=== PATIENT | female | born 1960 | race American Indian/Alaskan Native ===

== ENCOUNTER 2016-05-24 19:55 | Emergency (ER) | payer BC ==
[2016-05-24 20:57] LABS: Basophils % (Auto) 0.5 % (0.0-1.8); Hematocrit 39.9 % (30.3-42.9); Hemoglobin 12.9 gm/dl (10.1-14.3); Mean Corpuscular HGB Conc 32 % (30-34); Mean Corpuscular Hemoglobin 28 pg (28-32); Mean Corpuscular Volume 87 fl (79-97); Platelet Count 182 K/mm3 (140-440); Red Blood Count 4.61 M/mm3 (3.65-5.03); Red Cell Distribution Width 14.9 % (13.2-15.2); White Blood Count 3.4 K/mm3 (4.5-11.0)
[2016-05-24 21:45] LABS: Anion Gap 19 mmol/L; Blood Urea Nitrogen 6 mg/dL (7-17); Calcium 8.6 mg/dL (8.4-10.2); Carbon Dioxide 26 mmol/L (22-30); Glucose 230 mg/dL (65-100); Potassium 3.9 mmol/L (3.6-5.0); Sodium 140 mmol/L (137-145)
[2016-05-24 21:47] LABS: Alanine Aminotransferase 21 units/L (7-56); Albumin 3.8 g/dL (3.9-5); Alkaline Phosphatase 82 units/L (35-129); Anion Gap 20 mmol/L; Bilirubin,Total 0.2 mg/dL (0.1-1.2); Blood Urea Nitrogen 6 mg/dL (7-17); Calcium 8.7 mg/dL (8.4-10.2); Carbon Dioxide 25 mmol/L (22-30); Chloride 97.4 mmol/L (98-107); Glucose 232 mg/dL (65-100); Sodium 138 mmol/L (137-145); Total Protein 7.6 g/dL (6.3-8.2)
[2016-05-24 22:10] LABS: Bacteria,Urine 1+ /HPF (Negative); Bilirubin,Urine NEG (Negative); Blood,Urine MOD (Negative); Ketones,Urine TR mg/dL (Negative); Leukocyte Esterase,Urine SM (Negative); Mucus,Urine 1+ /HPF; Nitrite,Urine NEG (Negative); Urobilinogen,Urine < 2.0 mg/dL (<2.0)
[2016-05-24] MEDS ORDERED: DUONEB 0.5 MG-3 MG/3 ML SOLN IH ONE (22:41)
[2016-05-24] MEDS ORDERED: MACROBID PO ONE (22:41)
[2016-05-24] MEDS ORDERED: ZOFRAN ODT PO ONE (22:59)
--- NOTE | 2016-05-24 22:59 | Emergency Department Report ---
HPI - General Chief Complaint: Weakness Time Seen by Provider: 05/24/16 22:31 - HPI HPI: This is a 55-year-old Afro-I[place] female presents the emergency department with complaint of some nausea with vomiting and some wheezing as well as some generalized weakness. The patient says that she had a 5 week history of cold like symptoms before she was diagnosed at [facility] last with pneumonia. She finished a course of antibiotics with still has been having some of the symptoms described above. She was told by her family to go to the hospital for a "second opinion." She has a history of insulin-dependent diabetes and hypertension. She denies any chest pain, back pain, vision change , slurred speech. She is not taken anything else for symptoms prior to presentation. No recent travel or sick contacts at home. ED Past Medical Hx - Past Medical History Previous Medical History?: Yes Hx Hypertension: Yes Hx Heart Attack/AMI: No Hx Congestive Heart Failure: No Hx Diabetes: Yes Hx Deep Vein Thrombosis: No Hx Pulmonary Embolism: No Hx Liver Disease: No Hx Asthma: No Hx COPD: No Hx Tuberculosis: No Additional medical history: enlarged heart - Surgical History Hx Coronary Stent: No Hx Pacemaker: No Hx Internal Defibrillator: No - Social History Smoking Status: Never Smoker Substance Use Type: None - Medications Home Medications: Home Medications Medication Instructions Recorded Confirmed Last Taken Type Celecoxib [celeBREX] 200 mg PO QDAY 11/30/12 11/30/12 Unknown History Insulin Glargine,Hum.rec.anlog 20 unit SQ 11/30/12 11/30/12 Unknown History [Lantus Solostar] Lisinopril [Zestril] 40 mg PO QDAY 11/30/12 11/30/12 Unknown History Oxybutynin [Ditropan] 5 mg PO BID 11/30/12 11/30/12 Unknown History Pregabalin [Lyrica] 75 mg PO BID 11/30/12 11/30/12 Unknown History amLODIPine [Norvasc] 10 mg PO DAILY 11/30/12 11/30/12 Unknown History metFORMIN [Glucophage] 500 mg PO BID 11/30/12 11/30/12 Unknown History Ciprofloxacin HCl [Ciprofloxacin 500 mg PO Q12H #20 tab 04/02/14 Unknown Rx TAB] Nitrofurantoin Adams/M-Cryst 100 mg PO Q12HR #14 capsule 05/25/16 Unknown Rx [Macrobid CAP] ED Review of Systems ROS: Stated complaint: NAUSEA/HEADACHE/WEAKNESS Other details as noted in HPI Comment: All other systems reviewed and negative Constitutional: weakness. denies: chills, fever Eyes: denies: eye pain, eye discharge, vision change ENT: denies: ear pain, throat pain Respiratory: cough, wheezing. denies: shortness of breath Cardiovascular: denies: chest pain, edema Gastrointestinal: nausea, vomiting Genitourinary: denies: urgency, dysuria, discharge Musculoskeletal: denies: back pain, joint swelling, arthralgia Skin: denies: rash, lesions Neurological: denies: numbness, paresthesias Physical Exam - Physical Exam Vital Signs: Vital Signs 05/24/16 20:17 Temperature 98.1 F Pulse Rate 86 Blood Pressure 145/70 O2 Sat by Pulse 100 Oximetry Physical Exam: GENERAL: The patient is well-developed well-nourished. HEENT: Normocephalic. Atraumatic. Extraocular motions are intact. Patient has moist mucous membranes. Pupils equal reactive to light bilaterally. NECK: Supple. Trachea is midline. CHEST/LUNGS: Mild expiratory wheezing throughout the chest. No cough heard during examination. No tachypnea or accessory muscle use. There is no respiratory distress noted. HEART/CARDIOVASCULAR: Regular. There is no tachycardia. There is no gallop rub or murmur. ABDOMEN: Abdomen is soft, nontender. Patient has normal bowel sounds. There is no abdominal distention. Obese habitus. SKIN: Warm and dry. NEURO: The patient is awake, alert, and oriented. The patient is cooperative. The patient has no focal neurologic deficits. The patient has normal speech. Cranial nerves II through XII grossly intact. MUSCULOSKELETAL: There is no tenderness or deformity. There is no limitation range of motion. There is no evidence of acute injury. ED Course Vital Signs 05/24/16 20:17 Temperature 98.1 F Pulse Rate 86 Blood Pressure 145/70 O2 Sat by Pulse 100 Oximetry ED Medical Decision Making - Lab Data Result diagrams: 05/24/16 20:43 05/24/16 20:43 - EKG Data -: EKG Interpreted by Me EKG shows normal: sinus rhythm, axis, intervals (slight prolongation to the QTC) , QRS complexes, ST-T waves Rate: normal - EKG Data When compared to previous EKG there are: previous EKG unavailable Interpretation: other (sinus rhythm, no ST elevation [place], slight prolongation to the QTC) - Radiology Data Radiology results: image reviewed interpreted by me: Chest x-ray did not show any acute process. Heart is normal shape and size. No effusions. No pneumothorax. No signs of pneumonia seen. - Medical Decision Making 55-year-old female presents to the emergency department with the complaint of some generalized weakness, continued cough and chest congestion, after previous being treated for pneumonia. The patient wanted a second opinion. Patient's labs are mostly unremarkable. There is no leukocytosis, electrolyte abnormalities, renal insufficiency, glucose abnormalities and the patient had a negative troponin. EKG does not show any signs of ST elevation [place], dysrhythmia or ischemia. Patient was given a breathing treatment and upon reevaluation the slight expiratory wheezing she had has resolved and the patient says she is feeling better. The patient's urinalysis does show a very mild UTI with 20 WBCs. She'll be treated with Macrobid. She'll be encouraged to follow-up with her primary care doctor and return to the ER with any worsening of her symptoms or any acute distress. She understands and agrees to plan. - Differential Diagnosis pneumonia, bronchitis, asthma, viral syndrome Critical Care Time: No Critical care attestation.: If time is entered above; I have spent that time in minutes in the direct care of this critically ill patient, excluding procedure time. ED Disposition Clinical Impression: Bronchospasm, Weakness UTI (urinary tract infection) Qualifiers: Urinary tract infection type: acute cystitis Hematuria presence: without hematuria Qualified Code(s): N30.00 - Acute cystitis without hematuria Disposition: DISCHARGED TO HOME OR SELFCARE Is pt being admited?: No Condition: Stable Instructions: Weakness (ED), Bronchospasm (ED), Urinary Tract Infection in Women (ED) Additional Instructions: Please follow-up with your primary care doctor in the next few days. Use your albuterol inhaler as you need for any wheezing or shortness of breath. Take the antibiotics as prescribed for the urinary tract infection. Return to the emergency department with any worsening of your symptoms or any acute distress. Prescriptions: Nitrofurantoin Adams/M-Cryst [Macrobid CAP] 100 mg PO Q12HR #14 capsule Referrals: PRIMARY CARE, [Referring] - 3-5 Days Time of Disposition: 00:31
[2016-05-25 01:20] VITALS: BP 152/88
--- NOTE | 2016-05-25 09:21 | XRay Report ---
CHEST 2 VIEWS INDICATION: Cough. COMPARISON: November 2012. FINDINGS: PA and lateral chest radiographs again demonstrate borderline cardiomegaly. No pleural effusions or CHF. Extrinsic clothing artifacts. Multilevel thoracic spondylosis with predominantly right lateral and anterior osteophytes. CONCLUSION: No acute chest process, stable. Thank you for the opportunity to participate in this patient's care.
== END 2016-05-25 01:20 | disposition home or self-care (01) ==
LOC: ED 19:55
DX: N30.00 Acute cystitis without hematuria (principal); J98.01 Acute bronchospasm; R53.1 Weakness; I10 Essential (primary) hypertension; E11.9 Type 2 diabetes mellitus without complications; Z79.4 Long term (current) use of insulin
CPT/HCPCS: 36415; 71020; 80048; 80053; 81001; 84484; 85025; 93005; 93010; 94640; Q0162

== ENCOUNTER 2018-09-17 19:03 | Observation (INO) | payer BC ==
[2018-09-17 21:06] LABS: Basophils # (Auto) 0.1 K/mm3 (0.0-0.1); Basophils % (Auto) 0.4 % (0.0-1.8); Eosinophils # (Auto) 0.5 K/mm3 (0.0-0.4); Eosinophils % (Auto) 4.4 % (0.0-4.3); Hematocrit 39.5 % (30.3-42.9); Hemoglobin 13.4 gm/dl (10.1-14.3); Lymphocytes # (Auto) 1.3 K/mm3 (1.2-5.4); Lymphocytes % (Auto) 11.4 % (13.4-35.0); Mean Corpuscular HGB Conc 34 % (30-34); Mean Corpuscular Volume 85 fl (79-97); Monocytes # (Auto) 0.5 K/mm3 (0.0-0.8); Monocytes % (Auto) 4.6 % (0.0-7.3); Platelet Count 161 K/mm3 (140-440); Red Blood Count 4.63 M/mm3 (3.65-5.03); Red Cell Distribution Width 15.6 % (13.2-15.2)
[2018-09-17 21:22] LABS: Albumin 3.2 g/dL (3.9-5); BUN/Creatinine Ratio 17; Blood Urea Nitrogen 15 mg/dL (7-17); Calcium 9.1 mg/dL (8.4-10.2); Hemolysis Index 14
[2018-09-17 21:39] LABS: Alanine Aminotransferase < 5 units/L (7-56)
[2018-09-17 22:03] LABS: Bacteria,Urine 2+ /HPF (Negative); Bilirubin,Urine NEG (Negative); Blood,Urine MOD (Negative); Color,Urine Yellow (Yellow); Mucus,Urine FEW /HPF; Urobilinogen,Urine < 2.0 mg/dL (<2.0)
[2018-09-17] MEDS ORDERED: NACL 0.9% 1000 ML 1,000 ML IV ONE (22:28)
[2018-09-17] MEDS ORDERED: LEVAQUIN PO ONE (22:34)
--- NOTE | 2018-09-17 22:37 | Emergency Department Report ---
HPI - General Chief Complaint: Syncope Time Seen by Provider: 09/17/18 22:15 - HPI HPI: Room 22 The patient is a 58-year-old female presenting with a chief complaint of syncope. The patient says she had 2 syncopal episodes yesterday and a near-syncopal episode today. Patient states yesterday morning at approximately 09:00 upon standing up everything went black and she awakened on the floor. The patient was helped to a bed and had another syncopal episode upon arriving to her bed. EMS was called and she was evaluated however she was not transported to the ED. The patient states this morning she had a near syncopal episode but was able to sit down before losing consciousness. Patient states she's had intermittent dizziness all day. Patient denied any preceding palpitations, headache, shortness of breath or chest pain. Patient denies bright red blood per rectum or melena. Patient denies diarrhea. The patient states she's had a decreased appetite for the past 2 days. Patient admits to nausea but denies vomiting. When asked how she is feeling currently the patient states she feels "okay." Location: [See above] Duration: [See above] Quality: [See above] Severity: [See above] Modifying factors: [see above] Context: [see above] Mode of transportation: [not driving] ED Past Medical Hx - Past Medical History Previous Medical History?: Yes Hx Hypertension: Yes Hx Diabetes: Yes Additional medical history: enlarged heart, high cholesterol, neuropathy - Surgical History Past Surgical History?: Yes Additional Surgical History: Rectal - Family History Family history: no significant - Social History Smoking Status: Never Smoker Substance Use Type: None (denies illicit drug use), Alcohol (occasional) - Medications Home Medications: Home Medications Medication Instructions Recorded Confirmed Last Taken Type Celecoxib [celeBREX] 200 mg PO QDAY 11/30/12 11/30/12 Unknown History Insulin Glargine,Hum.rec.anlog 20 unit SQ 11/30/12 11/30/12 Unknown History [Lantus Solostar] Lisinopril [Zestril] 40 mg PO QDAY 11/30/12 11/30/12 Unknown History Oxybutynin [Ditropan] 5 mg PO BID 11/30/12 11/30/12 Unknown History Pregabalin [Lyrica] 75 mg PO BID 11/30/12 11/30/12 Unknown History amLODIPine [Norvasc] 10 mg PO DAILY 11/30/12 11/30/12 Unknown History metFORMIN [Glucophage] 500 mg PO BID 11/30/12 11/30/12 Unknown History Ciprofloxacin HCl [Ciprofloxacin 500 mg PO Q12H #20 tab 04/02/14 Unknown Rx TAB] Nitrofurantoin [place]/M-Cryst 100 mg PO Q12HR #14 capsule 05/25/16 Unknown Rx [Macrobid CAP] ED Review of Systems ROS: Stated complaint: DIZZINESS/FAINTING/BACK PAIN Other details as noted in HPI Constitutional: no symptoms reported Eyes: denies: eye pain ENT: denies: throat pain Respiratory: shortness of breath Cardiovascular: denies: chest pain, palpitations Endocrine: no symptoms reported Gastrointestinal: nausea. denies: vomiting Genitourinary: denies: dysuria Musculoskeletal: denies: back pain Neurological: other (syncope). denies: headache Physical Exam - Physical Exam Vital Signs: Vital Signs 09/17/18 09/17/18 19:15 20:07 Temperature 100.4 F H 98.7 F Pulse Rate 77 Respiratory 18 Rate Blood Pressure 132/57 O2 Sat by Pulse 94 Oximetry Physical Exam: GENERAL: The patient is well-developed well-nourished female lying on stretcher not appearing to be in acute distress. [] HEENT: Normocephalic. Atraumatic. Extraocular motions are intact. Patient has moist mucous membranes. Right TM clear NECK: Supple. Trachea midline CHEST/LUNGS: Clear to auscultation. There is no respiratory distress noted. HEART/CARDIOVASCULAR: Regular. There is no tachycardia. There is no gallop rub or murmur. ABDOMEN: Abdomen is soft, nontender. Patient has normal bowel sounds. There is no abdominal distention. SKIN: There is no rash. There is no edema. There is no diaphoresis. NEURO: The patient is awake, alert, and oriented. The patient is cooperative. The patient has no focal neurologic deficits. The patient has normal speech. Cranial nerves II through XII grossly intact, no drift MUSCULOSKELETAL: There is no evidence of acute injury. ED Course Vital Signs 09/17/18 09/17/18 19:15 20:07 Temperature 100.4 F H 98.7 F Pulse Rate 77 Respiratory 18 Rate Blood Pressure 132/57 O2 Sat by Pulse 94 Oximetry ED Medical Decision Making - Lab Data Result diagrams: 09/17/18 20:34 09/17/18 20:34 - EKG Data -: EKG Interpreted by Me EKG shows normal: sinus rhythm Rate: normal - EKG Data When compared to previous EKG there are: changes noted Interpretation: nonspecific ST-T wave ana (new T-wave inversions noted in leads 1 aVL and V6 when compared to previous EKG dated 05/25/2016) - Radiology Data Radiology results: report reviewed (CT head, CT chest), image reviewed (CT head, CT chest) [address] [address] Cat Scan Report Signed Patient: PENNY GARCIA MR#: [id number] 45 : 1960 Acct:[id number] Age/Sex: 58 / F ADM Date: 09/17/18 Loc: ED Attending Dr: Ordering Physician: DAHLIA JIMENEZ MD Date of Service: 09/17/18 Procedure(s): CT head/brain wo con Accession Number(s): [id number] cc: DAHLIA JIMENEZ MD CT head without contrast INDICATION : syncope. Dizziness, multiple syncopal episodes over the past 2 days TECHNIQUE: Axial imaging performed from the skull apex through the skull base without the use of contrast. All CT scans at this location are performed using CT dose reduction for ALARA by means of automated exposure control. COMPARISON: None FINDINGS: Parenchyma: No acute intracranial hemorrhage or parenchymal abnormality. Ventricles: Ventricles are normal in size and appear symmetric. Soft tissues: Soft tissues including the orbits appear normal. Bones: No acute osseous abnormality. Sinuses: Sinuses and mastoid air cells are clear. IMPRESSION: No acute abnormality. Signer Name: Alin Cuevas MD Signed: 09/17/2018 11:05 PM Workstation Name: [id number] Transcribed By: MARIA ISABEL Dictated By: Alin Cuevas MD Electronically Authenticated By: Alin Cuevas MD Signed Date/Time: 09/17/182304 DD/ 03 TD/TT: [address] [address] Cat Scan Report Signed Patient: PENNY GARCIA MR#: [id number] 46 : 1960 Acct:[id number] Age/Sex: 58 / F ADM Date: 09/17/18 Loc: ED Attending Dr: Ordering Physician: DAHLIA JIMENEZ MD Date of Service: 09/18/18 Procedure(s): CT angio chest Accession Number(s): [id number] cc: DAHLIA JIMENEZ MD CTA CHEST WITH IV CONTRAST INDICATION: syncope, elevated d-dimer. TECHNIQUE: Axial CT images were obtained through the chest after injection of IV contrast. 3 plane MIP reconstructions were produced. All CT scans at this location are performed using CT dose reduction for ALARA by means of automated exposure control. COMPARISON: CT 12/02/2012. FINDINGS: Pulmonary Arteries: No pulmonary emboli. Thoracic Aorta: No acute abnormality. Heart: Normal. Coronary Arteries: No significant calcification. Lungs: No acute air space or interstitial disease. Pleura: No pleural effusion. No pneumothorax. Lymph Nodes: No significant adenopathy. Additional Findings: Bilateral carotid arteries take a very medial course. Upper Abdomen: No acute findings. Skeletal Structures: No significant osseous abnormality. IMPRESSION: 1. No CT evidence for pulmonary embolism. 2. No acute findings. Signer Name: Rory Serna MD Signed: 09/18/2018 1:16 AM Workstation Name: [id number] Transcribed By: ELOINA Dictated By: Rory Serna MD Electronically Authenticated By: Rory Serna MD Signed Date/Time: 09/18/18115 DD/ 3 TD/TT: - Differential Diagnosis syncope, dehydration, symptomatic anemia, PE, ACS Critical care attestation.: If time is entered above; I have spent that time in minutes in the direct care of this critically ill patient, excluding procedure time. ED Disposition Clinical Impression: Syncope Disposition: DC-09 OP ADMIT IP TO THIS HOSP Is pt being admited?: Yes Does the pt Need Aspirin: Yes Condition: Fair Instructions: Syncope (ED) Referrals: JP EARLY MD [Primary Care Provider] - 3-5 Days Time of Disposition: 01:31 (hospitalist notified (Dr. Ambar Hope))
--- NOTE | 2018-09-17 23:10 | Cat Scan Report ---
CT head without contrast INDICATION : syncope. Dizziness, multiple syncopal episodes over the past 2 days TECHNIQUE: Axial imaging performed from the skull apex through the skull base without the use of con trast. All CT scans at this location are performed using CT dose reduction for ALARA by means of aut omated exposure control. COMPARISON: None FINDINGS: Parenchyma: No acute intracranial hemorrhage or parenchymal abnormality. Ventricles: Ventricles are normal in size and appear symmetric. Soft tissues: Soft tissues including the orbits appear normal. Bones: No acute osseous abnormality. Sinuses: Sinuses and mastoid air cells are clear. IMPRESSION: No acute abnormality. Signer Name: Alin Cuevas MD Signed: 09/17/2018 11:05 PM Workstation Name: [id number]
--- NOTE | 2018-09-18 01:21 | Cat Scan Report ---
CTA CHEST WITH IV CONTRAST INDICATION: syncope, elevated d-dimer. TECHNIQUE: Axial CT images were obtained through the chest after injection of IV contrast. 3 plane MIP reconstru ctions were produced. All CT scans at this location are performed using CT dose reduction for ALARA b y means of automated exposure control. COMPARISON: CT 12/02/2012. FINDINGS: Pulmonary Arteries: No pulmonary emboli. Thoracic Aorta: No acute abnormality. Heart: Normal. Coronary Arteries: No significant calcification. Lungs: No acute air space or interstitial disease. Pleura: No pleural effusion. No pneumothorax. Lymph Nodes: No significant adenopathy. Additional Findings: Bilateral carotid arteries take a very medial course. Upper Abdomen: No acute findings. Skeletal Structures: No significant osseous abnormality. IMPRESSION: 1. No CT evidence for pulmonary embolism. 2. No acute findings. Signer Name: Rory Serna MD Signed: 09/18/2018 1:16 AM Workstation Name: [id number]
[2018-09-18] MEDS ORDERED: SODIUM CHLORIDE FLUSH SYRINGE 10 ML IV PRN (01:31)
[2018-09-18] MEDS ORDERED: TYLENOL PO PRN (01:31)
[2018-09-18] MEDS ORDERED: D50W (25GM) Syringe IV PRN (01:31)
[2018-09-18] MEDS ORDERED: ASPIRIN PO ONE (01:31)
[2018-09-18] MEDS ORDERED: ZOFRAN IV PRN (01:31)
[2018-09-18] MEDS ORDERED: SODIUM CHLORIDE FLUSH SYRINGE 10 ML INJ PRN (01:34)
--- NOTE | 2018-09-18 01:40 | History and Physical Report ---
<JAMIE APODACA - Last Filed: 09/18/18 03:31> History of Present Illness Date of examination: 09/18/18 Date of admission: 09/18/2018 Chief complaint: Syncopal episode History of present illness: 58-year-old -Iraqi female with history of hypertension, diabetes with neuropathy, HLD who presents to [facility] ED with complaints of syncopal episodes x2. Patient states that she had 2 syncopal episodes on Wednesday. Prior to having the syncopal episode patient states that she had prodromal period and include dizziness and nausea. She states that she recalls "blacking out". During regaining consciousness patient called EMS. EMS checked her blood sugar and blood pressure and she decided not to come to the ED for further evaluation. However on Wednesday morning and patient felt she was not at her baseline state of health. She described it as feeling "weird", she decided to come into the ED for evaluation. States that she experienced syncopal episodes 2 years ago and it was due to changes in her blood pressure medication. Denies: Emesis, hemoptysis, headache, gait dysfunction, noncompliance with antihypertensive and antidiabetic medication Past History Past Medical History: diabetes (neuropathy), hypertension, hyperlipidemia, other (enlarged heart) Past Surgical History: Other (rectal surgery) Social history: no significant social history Family history: no significant family history Medications and Allergies Allergies Allergy/AdvReac Type Severity Reaction Status Date / Time No Known Allergies Allergy Verified 12/01/12 08:54 Home Medications Medication Instructions Recorded Confirmed Last Taken Type Insulin Glargine,Hum.rec.anlog 40 unit SQ QHS 11/30/12 09/18/18 Unknown History [Lantus Solostar] Oxybutynin [Ditropan] 5 mg PO BID 11/30/12 09/18/18 Unknown History Pregabalin [Lyrica] 75 mg PO BID 11/30/12 09/18/18 Unknown History metFORMIN [Glucophage] 1,000 mg PO BID 11/30/12 09/18/18 Unknown History Aspirin [Aspirin BABY CHEW TAB] 81 mg PO QDAY 09/18/18 09/18/18 Unknown History Cyanocobalamin [Vitamin B-12] 1,000 mcg PO DAILY 09/18/18 09/18/18 Unknown History Duloxetine HCl [Cymbalta] 60 mg PO QDAY 09/18/18 09/18/18 Unknown History Ferrous Sulfate [Feosol 325 MG tab] 325 mg PO QDAY 09/18/18 09/18/18 Unknown History Rosuvastatin Calcium 40 mg PO QDAY 09/18/18 09/18/18 Unknown History Carvedilol [Coreg] 6.25 mg PO Q12HR #60 tablet 09/21/18 Unknown Rx Valsartan [Diovan] 320 mg PO QDAY #60 tablet 09/21/18 Unknown Rx amLODIPine [Norvasc] 10 mg PO QDAY #30 tablet 09/21/18 Unknown Rx Review of Systems All systems: negative (reviewed and no additional remarkable complaints except as noted below) Constitutional: poor appetite Cardiovascular: lightheadedness Respiratory: cough (related to seasonal allergies) Gastrointestinal: nausea Neurological: syncope, other (this is) Exam - Physical Exam Narrative exam: Physical exam General appearance: Present: No acute distress, well-developed, well-nourished, alert and oriented 3, -Iraqi female - EENT Eyes: Present: PERRL, EOM intact ENT: hearing intact, normal dentition - Neck Neck: Present: supple, normal ROM - Respiratory Respiratory effort: Non-labored Respiratory: Clear throughout - Cardiovascular Heart rate: 72 (bpm) Rhythm: Sinus rhythm Heart Sounds: Present: S1 & S2. Absent: rub, click - Extremities Extremities: no ischemia, pulses intact, - Peripheral Assessment Peripheral Pulses: within normal limits - Abdominal General gastrointestinal: soft, non-tender, normal bowel sounds - Integumentary Integumentary: Present: warm, dry - Musculoskeletal Musculoskeletal: Able to move all extremities -Neurological Neurological: CN II-XII intact - Psychiatric Psychiatric: Appropriate for situation, cooperative - Constitutional Vitals: Temp Pulse Resp BP Pulse Ox 98.7 F 64 16 119/65 87 09/17/18 20:07 09/17/18 23:35 09/17/18 23:35 09/17/18 23:35 09/17/18 23:35 Results - Labs CBC & Chem 7: 09/17/18 20:34 09/17/18 20:34 Labs: Laboratory Last Values WBC 11.3 K/mm3 (4.5-11.0) H 09/17/18 20:34 RBC 4.63 M/mm3 (3.65-5.03) 09/17/18 20:34 Hgb 13.4 gm/dl (10.1-14.3) 09/17/18 20:34 Hct 39.5 % (30.3-42.9) 09/17/18 20:34 MCV 85 fl (79-97) 09/17/18 20:34 MCH 29 pg (28-32) 09/17/18 20:34 MCHC 34 % (30-34) 09/17/18 20:34 RDW 15.6 % (13.2-15.2) H 09/17/18 20:34 Plt Count 161 K/mm3 (140-440) 09/17/18 20:34 Lymph % (Auto) 11.4 % (13.4-35.0) L 09/17/18 20:34 [place] % (Auto) 4.6 % (0.0-7.3) 09/17/18 20:34 Eos % (Auto) 4.4 % (0.0-4.3) H 09/17/18 20:34 Baso % (Auto) 0.4 % (0.0-1.8) 09/17/18 20:34 Lymph # 1.3 K/mm3 (1.2-5.4) 09/17/18 20:34 [place] # 0.5 K/mm3 (0.0-0.8) 09/17/18 20:34 Eos # 0.5 K/mm3 (0.0-0.4) H 09/17/18 20:34 Baso # 0.1 K/mm3 (0.0-0.1) 09/17/18 20:34 Seg Neutrophils % 79.2 % (40.0-70.0) H 09/17/18 20:34 Seg Neutrophils # 8.9 K/mm3 (1.8-7.7) H 09/17/18 20:34 328.23 ng/mlDDU (0-234) H 09/17/18 23:18 Sodium 132 mmol/L (137-145) L 09/17/18 20:34 Potassium 3.8 mmol/L (3.6-5.0) 09/17/18 20:34 Chloride 94.9 mmol/L (98-107) L 09/17/18 20:34 Carbon Dioxide 25 mmol/L (22-30) 09/17/18 20:34 16 mmol/L 09/17/18 20:34 BUN 15 mg/dL (7-17) 09/17/18 20:34 0.9 mg/dL (0.7-1.2) 09/17/18 20:34 Estimated GFR > 60 ml/min 09/17/18 20:34 17 % 09/17/18 20:34 Glucose 241 mg/dL (65-100) H 09/17/18 20:34 Calcium 9.1 mg/dL (8.4-10.2) 09/17/18 20:34 0.60 mg/dL (0.1-1.2) 09/17/18 20:34 AST 9 units/L (5-40) 09/17/18 20:34 ALT < 5 units/L (7-56) L 09/17/18 20:34 89 units/L (35-129) 09/17/18 20:34 < 0.010 ng/mL (0.00-0.029) 09/17/18 20:34 7.2 g/dL (6.3-8.2) 09/17/18 20:34 3.2 g/dL (3.9-5) L 09/17/18 20:34 0.8 % 09/17/18 20:34 Yellow (Yellow) 09/17/18 21:20 Cloudy (Clear) 09/17/18 21:20 5.0 (5.0-7.0) 09/17/18 21:20 Ur Specific [place] 1.023 (1.003-1.030) 09/17/18 21:20 30 mg/dl mg/dL (Negative) 09/17/18 21:20 Neg mg/dL (Negative) 09/17/18 21:20 Neg mg/dL (Negative) 09/17/18 21:20 Mod (Negative) 09/17/18 21:20 Neg (Negative) 09/17/18 21:20 Neg (Negative) 09/17/18 21:20 < 2.0 mg/dL (<2.0) 09/17/18 21:20 Ur Leukocyte Esterase Mod (Negative) 09/17/18 21:20 29.0 /HPF (0.0-6.0) H 09/17/18 21:20 22.0 /HPF (0.0-6.0) 09/17/18 21:20 U Epithel Cells (Auto) 34.0 /HPF (0-13.0) H 09/17/18 21:20 2+ /HPF (Negative) 09/17/18 21:20 Few /HPF 09/17/18 21:20 Few /HPF 09/17/18 21:20 - Imaging and Cardiology Imaging and Cardiology: CT angiogram chest: FINDINGS: Pulmonary Arteries: No pulmonary emboli. Thoracic Aorta: No acute abnormality. Heart: Normal. Coronary Arteries: No significant calcification. Lungs: No acute air space or interstitial disease. Pleura: No pleural effusion. No pneumothorax. Lymph Nodes: No significant adenopathy. Additional Findings: Bilateral carotid arteries take a very medial course. Upper Abdomen: No acute findings. Skeletal Structures: No significant osseous abnormality. IMPRESSION: 1. No CT evidence for pulmonary embolism. 2. No acute findings. CT head: FINDINGS: Parenchyma: No acute intracranial hemorrhage or parenchymal abnormality. Ventricles: Ventricles are normal in size and appear symmetric. Soft tissues: Soft tissues including the orbits appear normal. Bones: No acute osseous abnormality. Sinuses: Sinuses and mastoid air cells are clear. IMPRESSION: No acute abnormality. Assessment and Plan Assessment and plan: 8-year-old -Iraqi female with history of hypertension, diabetes with neuropathy, HLD who presents to [facility] ED with complaints of syncopal episodes x2. CT head did not show any evidence of any acute intracranial hemorrhage, masss, or parenchymal abnormality. CT angiogram chest negative for PE. Will admit to telemetry for further evaluation and treatment. Urinary tract infection Syncope HTN DM2- with neuropathy HLD Plan: Continue supportive care Neurochecks every shift Echocardiogram and bilateral carotid duplex pending PT/OT eval and treat Urine WBC 29.0 Urine culture pending Start Rocephin 1 g every 24 hours Monitor BP Resume home antihypertensive meds: Norvasc 5mg daily, valsartan 320mg daily, coreg 12.5mg BID POC BG monitoring Resume Lantus 40 units daily at bedtime Resume metformin 1000mg twice a day HgbA1C pending Continue aspirin 81 mg daily Start Lipitor 40 mg daily at bedtime Continue Lyrica 75 mg twice a day SSI coverage HGBA1C pending DVT PPX on Lovenox Advance Directives: No VTE prophylaxis?: Chemical Plan of care discussed with patient/family: Yes <PASCUAL CHRISTENSEN - Last Filed: 09/24/18 22:26> History of Present Illness Date of admission: 09/18/18 03:38 Medications and Allergies Active Meds: Active Medications Acetaminophen (Tylenol) 650 mg PO Q4H PRN PRN Reason: Pain MILD(1-3)/Fever >100.5/[place] Amlodipine Besylate (Norvasc) 5 mg PO QDAY [facility] Aspirin (Baby Aspirin) 81 mg PO QDAY [facility] Atorvastatin Calcium (Lipitor) 40 mg PO QHS [facility]1983 Carvedilol (Coreg) 25 mg PO Q12HR [facility]1983 Cyanocobalamin (Vitamin B-12) 1,000 mcg PO DAILY [facility] Dextrose (D50w (25gm) Syringe) 50 ml IV PRN PRN PRN Reason: Hypoglycemia Docusate Sodium (Colace) 100 mg PO BID [facility] Duloxetine HCl (Cymbalta) 60 mg PO QDAY [facility]1983 Enoxaparin Sodium (Lovenox) 40 mg SUB-Q QDAY [facility]1983 Ferrous Sulfate (Feosol) 325 mg PO QDAY [facility]1983 Ceftriaxone Sodium (Rocephin/Ns 1 Gm/50 Ml) 1 gm in 50 mls @ 100 mls/hr IV Q24HR [facility]; Protocol Insulin Glargine (Lantus) 40 units SUB-Q QHS [facility] Insulin Human Lispro (Humalog) 0 unit SUB-Q ACHS [facility]; Protocol Metformin HCl (Glucophage) 1,000 mg PO BIDDIAB [facility]1983 Ondansetron HCl (Zofran) 4 mg IV Q8H PRN PRN Reason: Nausea And Vomiting Oxybutynin Chloride (Ditropan) 5 mg PO BID [facility] Pregabalin (Lyrica) 75 mg PO BID [facility] Sodium Chloride (Sodium Chloride Flush Syringe 10 Ml) 10 ml IV BID [facility] Sodium Chloride (Sodium Chloride Flush Syringe 10 Ml) 10 ml IV PRN PRN PRN Reason: LINE FLUSH Valsartan (Diovan) 320 mg PO QDAY [facility] Exam - Constitutional Vitals: Temp Pulse Resp BP Pulse Ox 98.7 F 65 17 136/72 100 09/17/18 20:07 09/18/18 03:45 09/18/18 04:00 09/18/18 04:00 09/18/18 04:00 Results - Labs CBC & Chem 7: 09/20/18 06:58 09/20/18 06:58 Labs: Laboratory Last Values WBC 11.3 K/mm3 (4.5-11.0) H 09/17/18 20:34 RBC 4.63 M/mm3 (3.65-5.03) 09/17/18 20:34 Hgb 13.4 gm/dl (10.1-14.3) 09/17/18 20:34 Hct 39.5 % (30.3-42.9) 09/17/18 20:34 MCV 85 fl (79-97) 09/17/18 20:34 MCH 29 pg (28-32) 09/17/18 20:34 MCHC 34 % (30-34) 09/17/18 20:34 RDW 15.6 % (13.2-15.2) H 09/17/18 20:34 Plt Count 161 K/mm3 (140-440) 09/17/18 20:34 Lymph % (Auto) 11.4 % (13.4-35.0) L 09/17/18 20:34 [place] % (Auto) 4.6 % (0.0-7.3) 09/17/18 20:34 Eos % (Auto) 4.4 % (0.0-4.3) H 09/17/18 20:34 Baso % (Auto) 0.4 % (0.0-1.8) 09/17/18 20:34 Lymph # 1.3 K/mm3 (1.2-5.4) 09/17/18 20:34 [place] # 0.5 K/mm3 (0.0-0.8) 09/17/18 20:34 Eos # 0.5 K/mm3 (0.0-0.4) H 09/17/18 20:34 Baso # 0.1 K/mm3 (0.0-0.1) 09/17/18 20:34 Seg Neutrophils % 79.2 % (40.0-70.0) H 09/17/18 20:34 Seg Neutrophils # 8.9 K/mm3 (1.8-7.7) H 09/17/18 20:34 328.23 ng/mlDDU (0-234) H 09/17/18 23:18 Sodium 132 mmol/L (137-145) L 09/17/18 20:34 Potassium 3.8 mmol/L (3.6-5.0) 09/17/18 20:34 Chloride 94.9 mmol/L (98-107) L 09/17/18 20:34 Carbon Dioxide 25 mmol/L (22-30) 09/17/18 20:34 16 mmol/L 09/17/18 20:34 BUN 15 mg/dL (7-17) 09/17/18 20:34 0.9 mg/dL (0.7-1.2) 09/17/18 20:34 Estimated GFR > 60 ml/min 09/17/18 20:34 17 % 09/17/18 20:34 Glucose 241 mg/dL (65-100) H 09/17/18 20:34 8.6 % (4-6) H 09/18/18 00:00 Calcium 9.1 mg/dL (8.4-10.2) 09/17/18 20:34 0.60 mg/dL (0.1-1.2) 09/17/18 20:34 AST 9 units/L (5-40) 09/17/18 20:34 ALT < 5 units/L (7-56) L 09/17/18 20:34 89 units/L (35-129) 09/17/18 20:34 < 0.010 ng/mL (0.00-0.029) 09/17/18 20:34 7.2 g/dL (6.3-8.2) 09/17/18 20:34 3.2 g/dL (3.9-5) L 09/17/18 20:34 0.8 % 09/17/18 20:34 Yellow (Yellow) 09/17/18 21:20 Cloudy (Clear) 09/17/18 21:20 5.0 (5.0-7.0) 09/17/18 21:20 Ur Specific [place] 1.023 (1.003-1.030) 09/17/18 21:20 30 mg/dl mg/dL (Negative) 09/17/18 21:20 Neg mg/dL (Negative) 09/17/18 21:20 Neg mg/dL (Negative) 09/17/18 21:20 Mod (Negative) 09/17/18 21:20 Neg (Negative) 09/17/18 21:20 Neg (Negative) 09/17/18 21:20 < 2.0 mg/dL (<2.0) 09/17/18 21:20 Ur Leukocyte Esterase Mod (Negative) 09/17/18 21:20 29.0 /HPF (0.0-6.0) H 09/17/18 21:20 22.0 /HPF (0.0-6.0) 09/17/18 21:20 U Epithel Cells (Auto) 34.0 /HPF (0-13.0) H 09/17/18 21:20 2+ /HPF (Negative) 09/17/18 21:20 Few /HPF 09/17/18 21:20 Few /HPF 09/17/18 21:20 Assessment and Plan Assessment and plan: 58-year-old woman with history of hypertension, diabetes , hyperlipidemia comes to the ER for evaluation of syncopal episode thqt happened yesterday. States she stood up and everything went black and she passed out and had another episode. She recently had a change in her anti-hypertensive, taken off lisinopril and started on norvasc. Agree with plan as stated above
[2018-09-18] MEDS: HumaLOG SUB-Q SCH ×4 (07:30→22:18)
[2018-09-18] MEDS ORDERED: AMLODIPINE BESYLATE PO SCH (10:00)
[2018-09-18] MEDS ORDERED: VALSARTAN PO SCH (10:00)
[2018-09-18] MEDS ORDERED: NON-FORMULARY (Duloxetine Hcl [Cymbalta] 60 MG) PO SCH (10:00)
[2018-09-18] MEDS: ROCEPHIN/NS 1 GM/50 ML 1 GM/50 ML BAG IV SCH (11:03)
[2018-09-18] MEDS: GLUCOPHAGE PO SCH ×2 (11:04→17:52)
[2018-09-18] MEDS: DITROPAN PO SCH ×2 (11:04→21:31)
[2018-09-18] MEDS: VITAMIN B-12 PO SCH (11:05)
[2018-09-18] MEDS: LOVENOX SUB-Q SCH (11:05)
[2018-09-18] MEDS: LYRICA PO SCH ×2 (11:05→21:31)
[2018-09-18] MEDS: DIOVAN PO SCH (11:05)
[2018-09-18] MEDS: BABY ASPIRIN PO SCH (11:06)
[2018-09-18] MEDS: NORVASC PO SCH (11:06)
[2018-09-18] MEDS: COLACE PO SCH ×2 (11:06→21:31)
[2018-09-18] MEDS: FEOSOL PO SCH (11:06)
[2018-09-18] MEDS: COREG PO SCH ×2 (11:06→21:31)
[2018-09-18] MEDS: CYMBALTA PO SCH (11:06)
[2018-09-18] MEDS: SODIUM CHLORIDE FLUSH SYRINGE 10 ML IV SCH ×2 (11:07→21:31)
--- NOTE | 2018-09-18 11:08 | Vascular Lab Report ---
"DUPLEX DOPPLER ULTRASOUND CAROTID, BILATERAL INDICATION / CLINICAL INFORMATION: Stroke. Dizziness and syncope. COMPARISON: None available. FINDINGS: RIGHT CAROTID PLAQUE ESTIMATE: < 50% CCA velocity: 118.6 cm/sec. ICA peak systolic velocity: 100.6 cm/sec. ICA/CCA PSV Ratio: 0.85. Right Vertebral Artery: Antegrade flow. LEFT CAROTID PLAQUE ESTIMATE: < 50% CCA velocity: 138.8 cm/sec. ICA peak systolic velocity: 87.9 cm/sec. ICA/CCA PSV Ratio: 0.63. Left Vertebral Artery: Antegrade flow. IMPRESSION: 1. Right Internal Carotid Artery: Less than 50% diameter stenosis. 2. Left Internal Carotid Artery: Less than 50% diameter stenosis. Velocity criteria are extrapolated from diameter data as defined by the Society of Radiologists in [facility] Consensus Conference, Radiology 2003; 229;340-346. Degree of || ICA PSV || Plaque || ICA/CCA Stenosis (%) || (cm/sec) || estimate (%) || PSV Ratio Normal..............||....<125............||....None..........||.....<2.0 <50....................||....<125...........||.......<50..........||.....<2.0 50-69.................||..125-230.......||.......>50..........||...2.0-4.0 >70 but <100....||..>230..............||........>50........||.....>4.0 Near occlusion..||.High/low/none||....visible........||..variable Total occlusion..||..None.............||...no lumen.....||.........N/A Signer Name: Db Ko MD Signed: 09/18/2018 11:03 AM Workstation Name: [id number]"
[2018-09-18 11:23] LABS: Hematocrit 44.7 % (30.3-42.9); Hemoglobin 15.3 gm/dl (10.1-14.3); Mean Corpuscular HGB Conc 34 % (30-34); Mean Corpuscular Volume 86 fl (79-97); Platelet Count 152 K/mm3 (140-440); Red Blood Count 5.23 M/mm3 (3.65-5.03); Red Cell Distribution Width 15.7 % (13.2-15.2)
[2018-09-18 11:46] LABS: BUN/Creatinine Ratio 16; Blood Urea Nitrogen 11 mg/dL (7-17); Calcium 9.5 mg/dL (8.4-10.2); Hemolysis Index 65
--- NOTE | 2018-09-18 13:28 | Consultation ---
History of Present Illness Consult date: 09/18/18 Requesting physician: JAMIE APODACA Consult reason: syncope History of present illness: Ms. Toscano is a 58 y/o female with a history of hypertension, diabetes, diabetic neuropathy, hyperlipidemia and JED on CPAP who presented to the ED after two syncopal episodes on Wednesday that occurred shortly after standing up. She is previously unknown to our practice. Prior to "blacking out," she reports feeling dizzy. The dizziness persisted into the weekend, which prompted her ED visit. Additionally, she endorses intermittent chest pressure and intermittent BLE edema. A CT of the head was negative for acute findings. A CTA was negative for PE. Carotid dopplers found <50% stenosis bilaterally. An echocardiogram on 09/18 found an EF of 55 to 60 percent, impaired LV relaxation and posterior annular calcification. She states she has experienced syncopal episodes approximately two years ago, which she attributes to changes in her anti-hypertensives. Past History Past Medical History: diabetes (neuropathy), hypertension, hyperlipidemia, other (enlarged heart) Past Surgical History: Other (rectal surgery) Social history: no significant social history Family history: other (both parents and a brother had MIs) Medications and Allergies Allergies Allergy/AdvReac Type Severity Reaction Status Date / Time No Known Allergies Allergy Verified 12/01/12 08:54 Home Medications Medication Instructions Recorded Confirmed Last Taken Type Insulin Glargine,Hum.rec.anlog 40 unit SQ QHS 11/30/12 09/18/18 Unknown History [Lantus Solostar] Oxybutynin [Ditropan] 5 mg PO BID 11/30/12 09/18/18 Unknown History Pregabalin [Lyrica] 75 mg PO BID 11/30/12 09/18/18 Unknown History metFORMIN [Glucophage] 1,000 mg PO BID 11/30/12 09/18/18 Unknown History Amlodipine Besylate/Valsartan 1 each PO QDAY 09/18/18 09/18/18 Unknown History [Amlodipine-Valsartan 5-320 mg] Amoxicillin [Trimox CAP] 500 mg PO Q8H 09/18/18 09/18/18 Unknown History Aspirin [Aspirin BABY CHEW TAB] 81 mg PO QDAY 09/18/18 09/18/18 Unknown History Benzonatate [Tessalon Perles] 100 mg PO Q8HR PRN 09/18/18 09/18/18 Unknown History Carvedilol [Coreg] 25 mg PO Q12H 09/18/18 09/18/18 Unknown History Cyanocobalamin [Vitamin B-12] 1,000 mcg PO DAILY 09/18/18 09/18/18 Unknown History Duloxetine HCl [Cymbalta] 60 mg PO QDAY 09/18/18 09/18/18 Unknown History Ferrous Sulfate [Feosol] 325 mg PO QDAY 09/18/18 09/18/18 Unknown History Ibuprofen [Motrin] 800 mg PO Q8HR PRN 09/18/18 09/18/18 Unknown History Rosuvastatin Calcium 40 mg PO QDAY 09/18/18 09/18/18 Unknown History Active Meds: Active Medications Acetaminophen (Tylenol) 650 mg PO Q4H PRN PRN Reason: Pain MILD(1-3)/Fever >100.5/[place] Amlodipine Besylate (Norvasc) 5 mg PO QDAY [facility] Last Admin: 09/18/18 11:06 Dose: 5 mg Documented by: Aspirin (Baby Aspirin) 81 mg PO QDAY [facility] Last Admin: 09/18/18 11:06 Dose: 81 mg Documented by: Atorvastatin Calcium (Lipitor) 40 mg PO QHS [facility] Carvedilol (Coreg) 25 mg PO Q12HR [facility] Last Admin: 09/18/18 11:06 Dose: 25 mg Documented by: Cyanocobalamin (Vitamin B-12) 1,000 mcg PO DAILY [facility] Last Admin: 09/18/18 11:05 Dose: 1,000 mcg Documented by: Dextrose (D50w (25gm) Syringe) 50 ml IV PRN PRN PRN Reason: Hypoglycemia Docusate Sodium (Colace) 100 mg PO BID [facility] Last Admin: 09/18/18 11:06 Dose: 100 mg Documented by: Duloxetine HCl (Cymbalta) 60 mg PO QDAY [facility] Last Admin: 09/18/18 11:06 Dose: 60 mg Documented by: Enoxaparin Sodium (Lovenox) 40 mg SUB-Q QDAY [facility] Last Admin: 09/18/18 11:05 Dose: 40 mg Documented by: Ferrous Sulfate (Feosol) 325 mg PO QDAY [facility] Last Admin: 09/18/18 11:06 Dose: 325 mg Documented by: Ceftriaxone Sodium (Rocephin/Ns 1 Gm/50 Ml) 1 gm in 50 mls @ 100 mls/hr IV Q24HR [facility]; Protocol Last Admin: 09/18/18 11:03 Dose: 100 mls/hr Documented by: Insulin Glargine (Lantus) 40 units SUB-Q QHS [facility] Insulin Human Lispro (Humalog) 0 unit SUB-Q ACHS [facility]; Protocol Last Admin: 09/18/18 12:08 Dose: Not Given Documented by: Metformin HCl (Glucophage) 1,000 mg PO BIDDIAB [facility] Last Admin: 09/18/18 11:04 Dose: 1,000 mg Documented by: Ondansetron HCl (Zofran) 4 mg IV Q8H PRN PRN Reason: Nausea And Vomiting Oxybutynin Chloride (Ditropan) 5 mg PO BID [facility] Last Admin: 09/18/18 11:04 Dose: 5 mg Documented by: Pregabalin (Lyrica) 75 mg PO BID [facility] Last Admin: 09/18/18 11:05 Dose: 75 mg Documented by: Sodium Chloride (Sodium Chloride Flush Syringe 10 Ml) 10 ml IV BID [facility] Last Admin: 09/18/18 11:07 Dose: 10 ml Documented by: Sodium Chloride (Sodium Chloride Flush Syringe 10 Ml) 10 ml IV PRN PRN PRN Reason: LINE FLUSH Valsartan (Diovan) 320 mg PO QDAY [facility] Last Admin: 09/18/18 11:05 Dose: 320 mg Documented by: Review of Systems All systems: negative Physical Examination Vital Signs Temp 100.4 F H 09/17/18 19:15 General appearance: no acute distress HEENT: Positive: Normocephaly Neck: Positive: neck supple Cardiac: Positive: Reg Rate and Rhythm Lungs: Positive: Normal Exam Neuro: Positive: Grossly Intact Abdomen: Positive: Unremarkable Skin: Positive: Clear Musculoskeletal: Normal Range of Motion Extremities: Present: normal Results 09/18/18 11:02 09/18/18 11:02 Cardiac Enzymes 09/17/18 Range/Units 20:34 AST 9 (5-40) units/L CBC 09/17/18 09/18/18 Range/Units 20:34 11:02 WBC 11.3 H 9.7 (4.5-11.0) K/mm3 RBC 4.63 5.23 H (3.65-5.03) M/mm3 Hgb 13.4 15.3 H (10.1-14.3) gm/dl Hct 39.5 44.7 H (30.3-42.9) % Plt Count 161 152 (140-440) K/mm3 Lymph # 1.3 (1.2-5.4) K/mm3 [place] # 0.5 (0.0-0.8) K/mm3 Eos # 0.5 H (0.0-0.4) K/mm3 Baso # 0.1 (0.0-0.1) K/mm3 Comprehensive Metabolic Panel 09/17/18 09/18/18 Range/Units 20:34 11:02 Sodium 132 L 138 (137-145) mmol/L Potassium 3.8 4.4 (3.6-5.0) mmol/L Chloride 94.9 L 97.6 L (98-107) mmol/L Carbon Dioxide 25 25 (22-30) mmol/L BUN 15 11 (7-17) mg/dL Creatinine 0.9 0.7 (0.7-1.2) mg/dL Glucose 241 H 217 H (65-100) mg/dL Calcium 9.1 9.5 (8.4-10.2) mg/dL AST 9 (5-40) units/L ALT < 5 L (7-56) units/L Alkaline Phosphatase 89 (35-129) units/L Total Protein 7.2 (6.3-8.2) g/dL Albumin 3.2 L (3.9-5) g/dL - Imaging and Cardiology Stress echo: pending Echo: report reviewed (09/18/18: EF 55-60%, impaired LV relaxation, posterior mitral annular calcification) EKG interpretations - Telemetry EKG Rhythm: Sinus Rhythm Assessment and Plan Ms. Toscano is a 58 y/o female with a history of hypertension, diabetes, diabetic neuropathy, hyperlipidemia and JED on CPAP who presented to the ED after two syncopal episodes on Wednesday that occurred shortly after standing up. CT of head, CTA of chest, carotid dopplers and echo unremarkable. Will obtain Lexiscan stress test to evaluate for ischemia. Will also obtain orthostatic vital signs BID. Continue antihypertensives as ordered. Further recommendations pending. The patient has been seen in conjunction with Dr. Tran, who agrees with assessment and plan. - Patient Problems (1) Syncope Current Visit: Yes Status: Acute (2) Diabetes Current Visit: Yes Status: Chronic (3) Hypertension Current Visit: Yes Status: Chronic (4) Sleep apnea with use of continuous positive airway pressure (CPAP) Current Visit: Yes Status: Chronic
--- NOTE | 2018-09-18 15:51 | Event Note ---
Date: 09/18/18 Patient presented with syncope. I have seen and examined her. Patient also had fever. Obtain blood cultures.
[2018-09-18] MEDS: LANTUS SUB-Q SCH (21:31)
[2018-09-19 06:07] LABS: Basophils % (Auto) 0.3 % (0.0-1.8); Eosinophils # (Auto) 0.6 K/mm3 (0.0-0.4); Eosinophils % (Auto) 5.7 % (0.0-4.3); Hematocrit 39.5 % (30.3-42.9); Hemoglobin 13.1 gm/dl (10.1-14.3); Lymphocytes # (Auto) 1.6 K/mm3 (1.2-5.4); Lymphocytes % (Auto) 15.7 % (13.4-35.0); Mean Corpuscular HGB Conc 33 % (30-34); Mean Corpuscular Volume 85 fl (79-97); Monocytes # (Auto) 0.5 K/mm3 (0.0-0.8); Monocytes % (Auto) 4.5 % (0.0-7.3); Platelet Count 174 K/mm3 (140-440); Red Blood Count 4.63 M/mm3 (3.65-5.03); Red Cell Distribution Width 15.5 % (13.2-15.2)
[2018-09-19 06:28] LABS: BUN/Creatinine Ratio 14; Blood Urea Nitrogen 11 mg/dL (7-17); Calcium 9.2 mg/dL (8.4-10.2); Hemolysis Index 3
[2018-09-19] MEDS ORDERED: LEXISCAN IV ONE ×3 (08:12→10:46)
[2018-09-19] MEDS ORDERED: K-DUR PO NR (09:04)
[2018-09-19] MEDS: HumaLOG SUB-Q SCH ×3 (09:11→23:08)
--- NOTE | 2018-09-19 12:27 | Progress Note ---
Assessment and Plan Ms. Toscano is a 58 y/o female with a history of hypertension, diabetes, diabetic neuropathy, hyperlipidemia and JED on CPAP who presented to the ED after two syncopal episodes on Wednesday that occurred shortly after standing up. CT of head, CTA of chest, carotid dopplers and echo unremarkable. S/p lexiscan MPI stress test this AM which was negative. Echo reviewed. Pt c/o dizziness with positional changes. She states that orthostatics were obtained overnight which showed hypotension with standing, although there is no documentation of these vital signs. Will decrease coreg dosage. cont to monitor on telemetry. The patient has been seen in conjunction with Dr. Tran who agrees with assessment and plan of care. - Patient Problems (1) Syncope Current Visit: Yes Status: Acute (2) Diabetes Current Visit: Yes Status: Chronic (3) Hypertension Current Visit: Yes Status: Chronic (4) Sleep apnea with use of continuous positive airway pressure (CPAP) Current Visit: Yes Status: Chronic Subjective Date of service: 09/19/18 Principal diagnosis: syncope Interval history: pt for stress test today. c/o dizziness with positional changes. tele reviewed- no acute events noted. Objective Last Vital Signs Temp 98.7 F 09/19/18 08:14 Pulse 83 09/19/18 08:14 Resp 20 09/19/18 08:14 BP 155/61 09/19/18 08:14 Pulse Ox 86 09/19/18 08:14 - Physical Examination General: No Apparent Distress HEENT: Positive: Normocephaly Neck: Positive: neck supple Cardiac: Positive: Reg Rate and Rhythm, S1/S2 Lungs: Positive: Decreased Breath Sounds Neuro: Positive: Grossly Intact Abdomen: Positive: Unremarkable Skin: Positive: Clear Musculoskeletal: Normal Range of Motion Extremities: Present: normal - Labs and Meds CBC 09/19/18 Range/Units 04:47 WBC 10.2 (4.5-11.0) K/mm3 RBC 4.63 (3.65-5.03) M/mm3 Hgb 13.1 (10.1-14.3) gm/dl Hct 39.5 (30.3-42.9) % Plt Count 174 (140-440) K/mm3 Lymph # 1.6 (1.2-5.4) K/mm3 [place] # 0.5 (0.0-0.8) K/mm3 Eos # 0.6 H (0.0-0.4) K/mm3 Baso # 0.0 (0.0-0.1) K/mm3 Comprehensive Metabolic Panel 09/19/18 Range/Units 04:47 Sodium 136 L (137-145) mmol/L Potassium 3.5 L D (3.6-5.0) mmol/L Chloride 96.9 L (98-107) mmol/L Carbon Dioxide 25 (22-30) mmol/L BUN 11 (7-17) mg/dL Creatinine 0.8 (0.7-1.2) mg/dL Glucose 171 H (65-100) mg/dL Calcium 9.2 (8.4-10.2) mg/dL - Imaging and Cardiology Stress echo: pending Echo: report reviewed (09/18/18: EF 55-60%, impaired LV relaxation, posterior mitral annular calcification)
[2018-09-19] MEDS: LOVENOX SUB-Q SCH (12:35)
[2018-09-19] MEDS: ROCEPHIN/NS 1 GM/50 ML 1 GM/50 ML BAG IV SCH (12:35)
[2018-09-19] MEDS: FEOSOL PO SCH (12:36)
[2018-09-19] MEDS: VITAMIN B-12 PO SCH (12:36)
[2018-09-19] MEDS: DIOVAN PO SCH (12:39)
[2018-09-19] MEDS: GLUCOPHAGE PO SCH (12:40)
[2018-09-19] MEDS: CYMBALTA PO SCH (12:40)
[2018-09-19] MEDS: COLACE PO SCH ×3 (12:42→23:10)
[2018-09-19] MEDS: NORVASC PO SCH (12:42)
[2018-09-19] MEDS: LYRICA PO SCH ×2 (12:43→23:10)
[2018-09-19] MEDS: COREG PO SCH ×2 (12:43→14:11)
[2018-09-19] MEDS: BABY ASPIRIN PO SCH (12:44)
[2018-09-19] MEDS: SODIUM CHLORIDE FLUSH SYRINGE 10 ML IV SCH ×2 (12:50→23:11)
--- NOTE | 2018-09-19 13:15 | Progress Note ---
Assessment and Plan Assessment and plan: Patient is 58-year-old -Maltese female with history of hypertension, diabetes with neuropathy, HLD who presents to [facility] ED with complaints of syncopal episodes x2. CT head did not show any evidence of any acute intracranial hemorrhage, masss, or parenchymal abnormality. CT angiogram chest negative for PE. Syncope Urinary tract infection HTN DM2- with neuropathy HLD Hypokalemia Plan: Continue supportive care Neurochecks every shift Echocardiogram and bilateral carotid duplex pending PT/OT eval and treat Urine culture more than 2 organisms. Repeat urine culture ordered Continue Rocephin 1 g every 24 hours Monitor BP Resumed home antihypertensive meds: Norvasc 5mg daily, valsartan 320mg daily, Coreg POC BG monitoring Resume Lantus 40 units daily at bedtime Resume metformin 1000mg twice a day HgbA1C 8.6 Continue aspirin 81 mg daily Start Lipitor 40 mg daily at bedtime Continue Lyrica 75 mg twice a day SSI coverage DVT PPX on Lovenox Patient believes Coreg is responsible for Dizziness, syncope. I discussed with cardiology and Cardiology has decreased dose to 12.5mg bid from 25mg bid. Orthostatic vitals ordered cardiology states she was orthostatic when she went for stress test today. Disposition: Please follow cardiology recommendations History Interval history: Syncope X 2 Dizziness Hospitalist Physical - Physical exam Narrative exam: Gen: Not in acute distress, lying in bed, morbidly obese HEENT: Normocephalic, atraumatic Neck: supple, no JVD Heart: S1 and S2 reg, no murmurs, rubs or gallop Lungs: Clear, no crackles, no wheeze Abd: soft, non tender, non distended, normal BS Ext: No edema, no clubbing, no cyanosis, Neuro: Awake,alert, oriented,moves all ext, - Constitutional Vitals: Temp Pulse Resp BP Pulse Ox 98.8 F 113 H 20 189/76 86 09/19/18 12:20 09/19/18 12:43 09/19/18 12:20 09/19/18 12:43 09/19/18 12:20 General appearance: Present: no acute distress Results - Labs CBC & Chem 7: 09/19/18 04:47 09/19/18 04:47 Labs: Laboratory Last Values WBC 10.2 K/mm3 (4.5-11.0) 09/19/18 04:47 RBC 4.63 M/mm3 (3.65-5.03) 09/19/18 04:47 Hgb 13.1 gm/dl (10.1-14.3) 09/19/18 04:47 Hct 39.5 % (30.3-42.9) 09/19/18 04:47 MCV 85 fl (79-97) 09/19/18 04:47 MCH 28 pg (28-32) 09/19/18 04:47 MCHC 33 % (30-34) 09/19/18 04:47 RDW 15.5 % (13.2-15.2) H 09/19/18 04:47 Plt Count 174 K/mm3 (140-440) 09/19/18 04:47 Lymph % (Auto) 15.7 % (13.4-35.0) 09/19/18 04:47 [place] % (Auto) 4.5 % (0.0-7.3) 09/19/18 04:47 Eos % (Auto) 5.7 % (0.0-4.3) H 09/19/18 04:47 Baso % (Auto) 0.3 % (0.0-1.8) 09/19/18 04:47 Lymph # 1.6 K/mm3 (1.2-5.4) 09/19/18 04:47 [place] # 0.5 K/mm3 (0.0-0.8) 09/19/18 04:47 Eos # 0.6 K/mm3 (0.0-0.4) H 09/19/18 04:47 Baso # 0.0 K/mm3 (0.0-0.1) 09/19/18 04:47 Seg Neutrophils % 73.8 % (40.0-70.0) H 09/19/18 04:47 Seg Neutrophils # 7.6 K/mm3 (1.8-7.7) 09/19/18 04:47 328.23 ng/mlDDU (0-234) H 09/17/18 23:18 Sodium 136 mmol/L (137-145) L 09/19/18 04:47 Potassium 3.5 mmol/L (3.6-5.0) L D 09/19/18 04:47 Chloride 96.9 mmol/L (98-107) L 09/19/18 04:47 Carbon Dioxide 25 mmol/L (22-30) 09/19/18 04:47 18 mmol/L 09/19/18 04:47 BUN 11 mg/dL (7-17) 09/19/18 04:47 0.8 mg/dL (0.7-1.2) 09/19/18 04:47 Estimated GFR > 60 ml/min 09/19/18 04:47 14 % 09/19/18 04:47 Glucose 171 mg/dL (65-100) H 09/19/18 04:47 POC Glucose 167 (70-105) H 09/19/18 12:28 8.6 % (4-6) H 09/18/18 00:00 Calcium 9.2 mg/dL (8.4-10.2) 09/19/18 04:47 0.60 mg/dL (0.1-1.2) 09/17/18 20:34 AST 9 units/L (5-40) 09/17/18 20:34 ALT < 5 units/L (7-56) L 09/17/18 20:34 89 units/L (35-129) 09/17/18 20:34 < 0.010 ng/mL (0.00-0.029) 09/17/18 20:34 7.2 g/dL (6.3-8.2) 09/17/18 20:34 3.2 g/dL (3.9-5) L 09/17/18 20:34 0.8 % 09/17/18 20:34 Yellow (Yellow) 09/17/18 21:20 Cloudy (Clear) 09/17/18 21:20 5.0 (5.0-7.0) 09/17/18 21:20 Ur Specific [place] 1.023 (1.003-1.030) 09/17/18 21:20 30 mg/dl mg/dL (Negative) 09/17/18 21:20 Neg mg/dL (Negative) 09/17/18 21:20 Neg mg/dL (Negative) 09/17/18 21:20 Mod (Negative) 09/17/18 21:20 Neg (Negative) 09/17/18 21:20 Neg (Negative) 09/17/18 21:20 < 2.0 mg/dL (<2.0) 09/17/18 21:20 Ur Leukocyte Esterase Mod (Negative) 09/17/18 21:20 29.0 /HPF (0.0-6.0) H 09/17/18 21:20 22.0 /HPF (0.0-6.0) 09/17/18 21:20 U Epithel Cells (Auto) 34.0 /HPF (0-13.0) H 09/17/18 21:20 2+ /HPF (Negative) 09/17/18 21:20 Few /HPF 09/17/18 21:20 Few /HPF 09/17/18 21:20 Active Medications - Current Medications Current Medications: Generic Name Dose Route Start Last Admin Trade Name Freq PRN Reason Stop Dose Admin Acetaminophen 650 mg 09/18/18 01:31 Tylenol PO Q4H PRN Pain MILD(1-3)/Fever >100.5/HENLEY Amlodipine Besylate 5 mg 09/18/18 10:00 09/19/18 12:42 Norvasc PO 5 mg QDAY TAD Administration Aspirin 81 mg 09/18/18 10:00 09/19/18 12:44 Baby Aspirin PO 81 mg QDAY TAD Administration Atorvastatin Calcium 40 mg 09/18/18 22:00 09/18/18 21:31 Lipitor PO 40 mg QHS TAD Administration Carvedilol 12.5 mg 09/19/18 13:00 Coreg PO Q12HR TAD Cyanocobalamin 1,000 mcg 09/18/18 10:00 09/19/18 12:36 Vitamin B-12 PO 1,000 mcg DAILY TAD Administration Dextrose 50 ml 09/18/18 01:31 D50w (25gm) Syringe IV PRN PRN Hypoglycemia Docusate Sodium 100 mg 09/18/18 10:00 09/19/18 12:42 Colace PO 100 mg BID TAD Administration Duloxetine HCl 60 mg 09/18/18 10:00 09/19/18 12:40 Cymbalta PO 60 mg QDAY TAD Administration Enoxaparin Sodium 40 mg 09/18/18 10:00 09/19/18 12:35 Lovenox SUB-Q 40 mg QDAY TAD Administration Ferrous Sulfate 325 mg 09/18/18 10:00 09/19/18 12:36 Feosol PO 325 mg QDAY TAD Administration Ceftriaxone Sodium 1 gm in 50 mls @ 100 mls/hr 09/18/18 10:00 09/19/18 12:35 Rocephin/Ns 1 Gm/50 Ml IV 100 mls/hr Q24HR TAD Administration Protocol Insulin Glargine 40 units 09/18/18 22:00 09/18/18 21:31 Lantus SUB-Q 40 units QHS TAD Administration Insulin Human Lispro 0 unit 09/18/18 07:30 09/19/18 12:35 Humalog SUB-Q 2 unit ACHS TAD Administration Protocol Metformin HCl 1,000 mg 09/18/18 08:00 09/19/18 12:40 Glucophage PO 500 mg BIDDIAB TAD Administration Ondansetron HCl 4 mg 09/18/18 01:31 Zofran IV Q8H PRN Nausea And Vomiting Oxybutynin Chloride 5 mg 09/18/18 10:00 09/18/18 21:31 Ditropan PO 5 mg BID TAD Administration Pregabalin 75 mg 09/18/18 10:00 09/19/18 12:43 Lyrica PO 75 mg BID TAD Administration Sodium Chloride 10 ml 09/18/18 10:00 09/19/18 12:50 Sodium Chloride Flush Syringe 10 Ml IV 10 ml BID TAD Administration Sodium Chloride 10 ml 09/18/18 01:31 Sodium Chloride Flush Syringe 10 Ml IV PRN PRN LINE FLUSH Valsartan 320 mg 09/18/18 10:00 09/19/18 12:39 Diovan PO 320 mg QDAY TAD Administration Nutrition/Malnutrition Assess - Dietary Evaluation Nutrition/Malnutrition Findings: Nutrition Notes Start: 09/18/18 15:17 Freq: Status: Active Protocol: Document 09/18/18 15:17 RM (Rec: 09/18/18 15:25 RM [id number]) Nutrition Notes Need for Assessment generated from: MD Order Initial or Follow up Assessment Current Diagnosis Diabetes,Hypertension, Hyperlipidemia Other Pertinent Diagnosis UTI Current Diet Cardiac/Consistent CHO Labs/Tests A1c 8.6 Pertinent Medications Reviewed Height 5 ft 4 in Weight [address] [place] Body Weight (kg) 54.54 BMI 47.7 Subjective/Other Information Consulted for DM diet education. Pt stated that her appetite is poor and that she eats 25% of her meals. Admitted to nausea but no vomiting. Reviewed DM diet education. Gave handout. Percent of energy/protein needs met: 31%/29% Burn Absent Trauma Absent #2 Nutrition Diagnosis Inadequate oral intake Etiology decreased appetite As Evidenced by Signs and Symptoms pt statement that she eats 25% of her meals #1 Nutrition Diagnosis Food and nutrition-related knowledge deficit Etiology lack of prior education As Evidenced by Signs and Symptoms no prior knowledge of need for food and nutrition recommendations Is patient on ventilator? No Is Patient Ambulatory and/or Out of Bed No REE-([facility]-confined to bed) 2199.960 Kcal/Kg value to use for calculation 13 Approximate Energy Requirements Using 1638 kcal/Kg Calculation Used for Recommendations Kcal/kg Additional Notes Protein Needs: 72-90g (0.8-1g/ kg 90kg adjBW) Fluid Needs: 1 ml/kcal Nutrition Intervention Change Diet Order: Continue current Add Supplement/Snack (indicate name/kcal Glucerna Chocolate 1 daily /protein ) Provides kCal: 220 Provides Protein (gm) 10 Teaching Recipient Patient Learning Readiness Good Teaching Methods Discussion,Handout Response to Teaching Verbalize understanding Education Handouts Provided Carbohydrate counting for people with diabetes Barriers to Learning No Barriers RD phone number provided Yes Patient aware of follow up options Yes Goal #1 Meet at least 75% of calorie and protein needs via PO and ONS intakes Goal #2 Utilize carbohydrate counting Anticipated Discharge Needs: Cardiac/Consistent CHO diet Follow-Up By: 09/21/18 Additional Comments Follow for PO and ONS intakes
[2018-09-19] MEDS: DITROPAN PO SCH ×2 (13:35→23:10)
[2018-09-19] MEDS: LANTUS SUB-Q SCH (23:08)
[2018-09-20] MEDS: COREG PO SCH ×3 (01:00→23:04)
--- NOTE | 2018-09-20 01:06 | Treadmill Report ---
MYOCARDIAL PERFUSION IMAGING STUDY Resting images revealed homogeneous radioisotope activity. Post-Lexiscan images again revealed similar uptake. On gated scan, ejection fraction noted to be 70%. Transient ischemic dilatation was 1.13, which is within normal range. IMPRESSION: 1. This test is negative for ischemia. 2. Gated scan revealed good left ventricular systolic function. JOB# [id number] KOMAL/[place]
[2018-09-20 07:45] LABS: Hematocrit 40.6 % (30.3-42.9); Hemoglobin 13.6 gm/dl (10.1-14.3); Mean Corpuscular HGB Conc 34 % (30-34); Mean Corpuscular Volume 86 fl (79-97); Platelet Count 175 K/mm3 (140-440); Red Blood Count 4.71 M/mm3 (3.65-5.03); Red Cell Distribution Width 16.1 % (13.2-15.2)
[2018-09-20] MEDS: HumaLOG SUB-Q SCH ×5 (07:48→22:26)
[2018-09-20] MEDS: GLUCOPHAGE PO SCH ×3 (07:48→17:43)
[2018-09-20 08:15] LABS: BUN/Creatinine Ratio 11; Blood Urea Nitrogen 9 mg/dL (7-17); Calcium 9.2 mg/dL (8.4-10.2); Hemolysis Index 1
[2018-09-20] MEDS: FEOSOL PO SCH (10:42)
[2018-09-20] MEDS: COLACE PO SCH ×2 (10:42→22:33)
[2018-09-20] MEDS: NORVASC PO SCH (10:42)
[2018-09-20] MEDS: BABY ASPIRIN PO SCH (10:42)
[2018-09-20] MEDS: DIOVAN PO SCH (10:42)
[2018-09-20] MEDS: CYMBALTA PO SCH (10:42)
[2018-09-20] MEDS: LOVENOX SUB-Q SCH (10:43)
[2018-09-20] MEDS: ROCEPHIN/NS 1 GM/50 ML 1 GM/50 ML BAG IV SCH (10:43)
[2018-09-20] MEDS: VITAMIN B-12 PO SCH (10:43)
[2018-09-20] MEDS: DITROPAN PO SCH ×2 (10:43→22:24)
[2018-09-20] MEDS: LYRICA PO SCH ×2 (10:43→22:24)
[2018-09-20] MEDS: SODIUM CHLORIDE FLUSH SYRINGE 10 ML IV SCH ×2 (10:44→22:24)
[2018-09-20] MEDS ORDERED: NORVASC PO SCH (12:14)
[2018-09-20] MEDS ORDERED: COREG PO SCH (12:14)
[2018-09-20] MEDS ORDERED: ZESTRIL PO SCH (13:00)
--- NOTE | 2018-09-20 13:16 | Progress Note ---
Assessment and Plan Currently stable cardiac status. Pt reports she is feeling better today. Orthostatics were positive yesterday evening and noted to be improved this AM. Pt may discharge home from cardiology standpoint. Recommend follow up in our office with Dr. Tran within 1-2 weeks of hospital discharge ([phone]). The patient has been seen in conjunction with Dr. Tran who agrees with assessment and plan of care. - Patient Problems (1) Syncope Current Visit: Yes Status: Acute (2) Diabetes Current Visit: Yes Status: Chronic (3) Hypertension Current Visit: Yes Status: Chronic (4) Sleep apnea with use of continuous positive airway pressure (CPAP) Current Visit: Yes Status: Chronic Subjective Date of service: 09/20/18 Principal diagnosis: syncope Interval history: pt resting in bed, states she is feeling better today. tele reviewed- no acute events noted. Objective Last Vital Signs Temp 98.0 F 09/20/18 07:58 Pulse 91 H 09/20/18 11:51 Resp 18 09/20/18 08:01 BP 137/59 09/20/18 11:51 Pulse Ox 86 09/20/18 08:01 - Physical Examination General: No Apparent Distress HEENT: Positive: Normocephaly Neck: Positive: neck supple Cardiac: Positive: Reg Rate and Rhythm, S1/S2 Lungs: Positive: Decreased Breath Sounds Neuro: Positive: Grossly Intact Abdomen: Positive: Unremarkable Skin: Positive: Clear Musculoskeletal: Normal Range of Motion Extremities: Present: normal - Labs and Meds CBC 09/20/18 Range/Units 06:58 WBC 8.1 (4.5-11.0) K/mm3 RBC 4.71 (3.65-5.03) M/mm3 Hgb 13.6 (10.1-14.3) gm/dl Hct 40.6 (30.3-42.9) % Plt Count 175 (140-440) K/mm3 Comprehensive Metabolic Panel 09/20/18 Range/Units 06:58 Sodium 141 (137-145) mmol/L Potassium 3.6 (3.6-5.0) mmol/L Chloride 98.6 (98-107) mmol/L Carbon Dioxide 28 (22-30) mmol/L BUN 9 (7-17) mg/dL Creatinine 0.8 (0.7-1.2) mg/dL Glucose 135 H (65-100) mg/dL Calcium 9.2 (8.4-10.2) mg/dL - Imaging and Cardiology Stress echo: pending Echo: report reviewed (09/18/18: EF 55-60%, impaired LV relaxation, posterior mitral annular calcification)
--- NOTE | 2018-09-20 14:23 | Progress Note ---
Assessment and Plan Syncope due to orthostatic hypotension Urinary tract infection HTN DM2- with neuropathy HLD Hypokalemia Plan: Continue supportive care Neurochecks every shift Echocardiogram showed preserved EF and bilateral carotid duplex showed less than 50% stenosis PT/OT consulted to eval and treat Urine culture more than 2 organisms. Repeat urine culture ordered Continue Rocephin 1 g every 24 hours Monitor BP POC BG monitoring Resumed Lantus 40 units daily at bedtime and metformin 1000mg twice a day HgbA1C 8.6 Continue aspirin 81 mg daily Start Lipitor 40 mg daily at bedtime Continue Lyrica 75 mg twice a day SSI coverage DVT PPX on Lovenox Patient believes Coreg is responsible for Dizziness, syncope. I discussed with cardiology and Cardiology has decreased dose to 6.25mg bid from 25mg bid. Orthostatic vitals ordered and positive for orthostatic hypotension Status post restrained showed no reversible ischemia Disposition: Further adjusted meds today, d/c tomorrow if dizziness improves Brief history: Patient is 58-year-old -[place] female with history of hypertension, diabetes with neuropathy, HLD who presents to [facility] ED with complaints of syncopal episodes x2. CT head did not show any evidence of any acute intracra nial hemorrhage, masss, or parenchymal abnormality. CT angiogram chest negative for PE. Hospitalist Physical Gen: Not in acute distress, lying in bed, morbidly obese HEENT: Normocephalic, atraumatic Neck: supple, no JVD Heart: S1 and S2 reg, no murmurs, rubs or gallop Lungs: Clear, no crackles, no wheeze Abd: soft, non tender, non distended, normal BS Ext: No edema, no clubbing, no cyanosis, Neuro: Awake,alert, oriented,moves all ext, Subjective Date of service: 09/20/18 Principal diagnosis: syncope Interval history: Patient seen and examined. Medical records and medication list reviewed. No acute event overnight noted by the RN. Patient denies any chest pain or difficulty breathing. Patient is tolerating diet. Continue to complain some dizziness when she stands, vitals noted Discussed plan of care at bedside with patient. Objective - Constitutional Vitals: Vital Signs - 12hr 09/20/18 09/20/18 09/20/18 04:00 07:49 07:58 Temperature 98.2 F 98.0 F Pulse Rate 66 82 Pulse Rate [ Lying] Respiratory 16 18 Rate Blood Pressure 137/59 Blood Pressure [Lying] Blood Pressure 130/55 [Right] O2 Sat by Pulse 97 Oximetry 09/20/18 09/20/18 09/20/18 08:01 08:02 11:51 Temperature Pulse Rate 83 Pulse Rate [ 91 H Lying] Respiratory 18 Rate Blood Pressure 153/78 116/79 Blood Pressure 137/59 [Lying] Blood Pressure [Right] O2 Sat by Pulse 86 Oximetry - Labs CBC & Chem 7: 09/20/18 06:58 09/20/18 06:58 Labs: Abnormal lab results 09/19/18 09/19/18 09/20/18 Range/Units 16:44 23:08 06:58 RDW 16.1 H (13.2-15.2) % Glucose (65-100) mg/dL POC Glucose 139 H 170 H (70-105) 09/20/18 09/20/18 09/20/18 Range/Units 06:58 08:04 11:52 RDW (13.2-15.2) % Glucose 135 H (65-100) mg/dL POC Glucose 133 H 166 H (70-105)
[2018-09-20] MEDS: LANTUS SUB-Q SCH (22:26)
[2018-09-21] MEDS: HumaLOG SUB-Q SCH (08:30)
[2018-09-21 08:55] VITALS: BP 149/58
[2018-09-21] MEDS: ROCEPHIN/NS 1 GM/50 ML 1 GM/50 ML BAG IV SCH (11:08)
--- NOTE | 2018-09-21 11:11 | Progress Note ---
Assessment and Plan Currently stable cardiac status. Pt c/o persistent lightheadedness with positional changes and is requesting neurology consultation. D/w Dr. Castillo. Nothing further to add from cardiac perspective at this time. The patient has been seen in conjunction with Dr. Tran who agrees with assessment and plan of care. - Patient Problems (1) Syncope Current Visit: Yes Status: Acute (2) Diabetes Current Visit: Yes Status: Chronic (3) Hypertension Current Visit: Yes Status: Chronic (4) Sleep apnea with use of continuous positive airway pressure (CPAP) Current Visit: Yes Status: Chronic Subjective Date of service: 09/21/18 Principal diagnosis: syncope Interval history: pt resting in bed, still c/o lightheadedness with positional changes. tele reviewed- no acute events noted overnight. Objective Last Vital Signs Temp 98.4 F 09/21/18 03:25 Pulse 77 09/21/18 08:32 Resp 19 09/21/18 03:25 BP 149/58 09/21/18 08:32 Pulse Ox 89 09/21/18 08:32 - Physical Examination General: No Apparent Distress HEENT: Positive: Normocephaly Neck: Positive: neck supple Cardiac: Positive: Reg Rate and Rhythm, S1/S2 Lungs: Positive: Decreased Breath Sounds Neuro: Positive: Grossly Intact Abdomen: Positive: Unremarkable Skin: Positive: Clear Musculoskeletal: Normal Range of Motion Extremities: Present: normal - Imaging and Cardiology Stress echo: pending Echo: report reviewed (09/18/18: EF 55-60%, impaired LV relaxation, posterior mitral annular calcification)
[2018-09-21] MEDS: DIOVAN PO SCH (11:16)
[2018-09-21] MEDS: LOVENOX SUB-Q SCH (11:16)
[2018-09-21] MEDS: CYMBALTA PO SCH (11:18)
[2018-09-21] MEDS: COREG PO SCH (11:19)
[2018-09-21] MEDS: VITAMIN B-12 PO SCH (11:19)
[2018-09-21] MEDS: COLACE PO SCH (11:19)
[2018-09-21] MEDS: BABY ASPIRIN PO SCH (11:20)
[2018-09-21] MEDS: DITROPAN PO SCH (11:20)
[2018-09-21] MEDS: LYRICA PO SCH (11:21)
--- NOTE | 2018-09-21 14:18 | Magnetic Resonance Report ---
MRI BRAIN 09/21/2018 INDICATION / CLINICAL INFORMATION: dizziness. TECHNIQUE: Multiplanar, multisequence MR images of the brain were obtained. COMPARISON: None available. FINDINGS: BRAIN / INTRACRANIAL CONTENTS: Unenhanced MR images of the brain demonstrate no evidence of acute int racranial abnormality. Ventricles and sulci are normal in size and shape. There is no evidence of ischemic injury, demyelination, hemorrhage, or mass. The brain parenchyma is very well preserved for age. There are no abnormal extra-axial fluid collections. EXTRACRANIAL: Unremarkable CRANIOCERVICAL JUNCTION: No significant abnormality. VASCULAR FLOW-VOIDS: No significant abnormality. IMPRESSION: No significant abnormality. Essentially negative unenhanced MRI of the brain for age. Signer Name: Isaac Blood MD Signed: 09/21/2018 2:14 PM Workstation Name: [id number]
--- NOTE | 2018-09-21 15:17 | Discharge Summary ---
Providers - Providers Date of Admission: 09/18/18 03:38 Date of discharge: 09/21/18 Attending physician: BLAKE DOVER 09/18/18 01:34 Occupational Therapy Evaluate and Treat [CONS] Routine Comment: Reason For Exam: Neuro deficits Physical Therapy Evaluation and Treat [CONS] Routine Comment: Reason For Exam: Neuro deficits 09/18/18 10:46 Consult to Physician [CONS] Routine Comment: Consulting Provider: SHANE WASHINGTON Physician Instructions: Reason For Exam: Syncope 09/18/18 12:10 Consult to Dietitian/Nutrition [CONS] Routine Physician Instructions: Reason For Exam: Reason for Consult: Diet education 09/21/18 11:51 Consult to Physician [CONS] Routine Comment: Consulting Provider: BRANDY AMES Physician Instructions: Reason For Exam: dizziness Primary care physician: JP EARLY MD Hospitalization Condition: Fair Pertinent studies: CT head/MRI brain without contrast 2-D echocardiogram, mpi stress stress Bilateral carotid Doppler Hospital course: Patient is 58-year-old -[place] female with history of hypertension, diabetes with neuropathy, HLD who presented to [facility] ED with complaints of syncopal episodes x2. CT head did not show any evidence of any acute intracranial hemorrhage, masss, or parenchymal abnormality. CT angiogram chest negative for PE. admitted for further Mx and evaluation. - Provided supportive care, Neurochecks every shift - CT head and MRI brain without any acute CVA, Echocardiogram showed preserved EF and bilateral carotid duplex showed less than 50% stenosis, monitored BP. Placed on aspirin 81 mg daily, Lipitor 40 mg daily at bedtime - PT/OT consulted to eval and treat recommended HH - Placed on Rocephin 1 g every 24 hours for possible UTI - POC BG monitoring, Resumed Lantus 40 units daily at bedtime and metformin 1000mg twice a day, HgbA1C 8.6 - Orthostatic vitals ordered and positive for orthostatic hypotension, - Patient believes Coreg is responsible for Dizziness, syncope and orthostatic hypotension. discussed with cardiology and Cardiology has decreased dose to 6.25mg bid from 25mg bid. - Status post stress test showed no reversible ischemia - Patient was then discharged home in stable condition. Discharge diagnosis: Syncope due to orthostatic hypotension Urinary tract infection HTN DM2- with neuropathy HLD Hypokalemia, repleted Disposition: home with outpt followup Hospitalist Physical Gen: Not in acute distress, lying in bed, morbidly obese HEENT: Normocephalic, atraumatic Neck: supple, no JVD Heart: S1 and S2 reg, no murmurs, rubs or gallop Lungs: Clear, no crackles, no wheeze Abd: soft, non tender, non distended, normal BS Ext: No edema, no clubbing, no cyanosis, Neuro: Awake,alert, oriented,moves all ext, Disposition: DC/TX-06 HOME UNDER HOME [facility] Time spent for discharge: 34 minutes Core Measure Documentation - Palliative Care Palliative Care/ Comfort Measures: Not Applicable - Core Measures Any of the following diagnoses?: none Exam - Constitutional Vitals: Temp Pulse Resp BP Pulse Ox 98.4 F 89 19 149/58 89 09/21/18 03:25 09/21/18 11:19 09/21/18 03:25 09/21/18 08:32 09/21/18 08:32 Plan Activity: advance as tolerated, fall precautions Weight Bearing Status: Weight Bear as Tolerated Diet: low fat, low salt, diabetic Special Instructions: record daily BP diary, record blood sugar diary Follow up with: JP EARLY MD [Primary Care Provider] - 3-5 Days Forms: Work/School Release Form Prescriptions: Carvedilol [Coreg] 6.25 mg PO Q12HR #60 tablet Valsartan [Diovan] 320 mg PO QDAY #60 tablet amLODIPine [Norvasc] 10 mg PO QDAY #30 tablet
--- NOTE | 2018-09-21 16:23 | Consultation ---
History of Present Illness Consult date: 09/21/18 Reason for Consult: Dizziness Chief complaint: Syncope, lightheadedness History of present illness: Patient is a 58-year-old woman with a history of hypertension, diabetes, diabetic neuropathy, hyperlipidemia, Mnire's disease. 5 days ago, on Wednesday, the patient noted that she had 2 episodes of loss of consciousness. She describes both episodes as initially feeling lightheaded soon after standing up, afterwards she passed out. Loss of consciousness was not noted to be related to any convulsions, loss of bowel or bladder control, or any significant trauma. She stated that her antihypertensive medications were increased by her primary care doctor approximately 1 month ago. She states that she had similar episodes in the past, a few years ago, when her antihypertensive medications were increased previously. Patient states that she been diagnosed with possible Mnire's disease in the past, and was being seen by ENT for this. She was taking a medication for Mnire's disease, which improved her symptoms, however she does not murmur the name of the medication. She is not taken the medication for Mnire's disease proximally 5 years, as she did not have medical insurance for a while. Patient states that she does not currently complain of dizziness, that she experienced when she had Mnire's disease. Currently she does not complain of vertigo, but rather has symptoms of mild lightheadedness upon standing up. Patient does not state that there is any worsening of lightheadedness with head movement, and that it is only related to standing up. Patient is also been found to have a UTI during this admission. Past History Past Medical History: diabetes (neuropathy), hypertension, hyperlipidemia, other (enlarged heart) Past Surgical History: Other (rectal surgery) Social history: no significant social history Family history: other (both parents and a brother had MIs) Medications and Allergies Allergies Allergy/AdvReac Type Severity Reaction Status Date / Time No Known Allergies Allergy Verified 12/01/12 08:54 Home Medications Medication Instructions Recorded Confirmed Last Taken Type Insulin Glargine,Hum.rec.anlog 40 unit SQ QHS 11/30/12 09/18/18 Unknown History [Lantus Solostar] Oxybutynin [Ditropan] 5 mg PO BID 11/30/12 09/18/18 Unknown History Pregabalin [Lyrica] 75 mg PO BID 11/30/12 09/18/18 Unknown History metFORMIN [Glucophage] 1,000 mg PO BID 11/30/12 09/18/18 Unknown History Aspirin [Aspirin BABY CHEW TAB] 81 mg PO QDAY 09/18/18 09/18/18 Unknown History Cyanocobalamin [Vitamin B-12] 1,000 mcg PO DAILY 09/18/18 09/18/18 Unknown History Duloxetine HCl [Cymbalta] 60 mg PO QDAY 09/18/18 09/18/18 Unknown History Ferrous Sulfate [Feosol 325 MG tab] 325 mg PO QDAY 09/18/18 09/18/18 Unknown History Rosuvastatin Calcium 40 mg PO QDAY 09/18/18 09/18/18 Unknown History Carvedilol [Coreg] 6.25 mg PO Q12HR #60 tablet 09/21/18 Unknown Rx Valsartan [Diovan] 320 mg PO QDAY #60 tablet 09/21/18 Unknown Rx amLODIPine [Norvasc] 10 mg PO QDAY #30 tablet 09/21/18 Unknown Rx Active Meds: Active Medications Acetaminophen (Tylenol) 650 mg PO Q4H PRN PRN Reason: Pain MILD(1-3)/Fever >100.5/HENLEY Amlodipine Besylate (Norvasc) 10 mg PO QDAY [facility] Last Admin: 09/21/18 11:20 Dose: 10 mg Documented by: Aspirin (Baby Aspirin) 81 mg PO QDAY [facility] Last Admin: 09/21/18 11:20 Dose: 81 mg Documented by: Atorvastatin Calcium (Lipitor) 40 mg PO QHS [facility] Last Admin: 09/20/18 22:23 Dose: 40 mg Documented by: Carvedilol (Coreg) 6.25 mg PO Q12HR [facility] Last Admin: 09/21/18 11:19 Dose: 6.25 mg Documented by: Cyanocobalamin (Vitamin B-12) 1,000 mcg PO DAILY [facility] Last Admin: 09/21/18 11:19 Dose: 1,000 mcg Documented by: Dextrose (D50w (25gm) Syringe) 50 ml IV PRN PRN PRN Reason: Hypoglycemia Docusate Sodium (Colace) 100 mg PO BID [facility] Last Admin: 09/21/18 11:19 Dose: 100 mg Documented by: Duloxetine HCl (Cymbalta) 60 mg PO QDAY [facility] Last Admin: 09/21/18 11:18 Dose: 60 mg Documented by: Enoxaparin Sodium (Lovenox) 40 mg SUB-Q QDAY [facility] Last Admin: 09/21/18 11:16 Dose: 40 mg Documented by: Ferrous Sulfate (Feosol) 325 mg PO QDAY [facility] Last Admin: 09/20/18 10:42 Dose: 325 mg Documented by: Ceftriaxone Sodium (Rocephin/Ns 1 Gm/50 Ml) 1 gm in 50 mls @ 100 mls/hr IV Q24HR [facility]; Protocol Last Admin: 09/21/18 11:08 Dose: 100 mls/hr Documented by: Insulin Glargine (Lantus) 40 units SUB-Q QHS [facility] Last Admin: 09/20/18 22:26 Dose: 40 units Documented by: Insulin Human Lispro (Humalog) 0 unit SUB-Q ACHS [facility]; Protocol Last Admin: 09/21/18 08:30 Dose: Not Given Documented by: Metformin HCl (Glucophage) 1,000 mg PO BIDDIAB [facility] Last Admin: 09/20/18 17:43 Dose: 500 mg Documented by: Ondansetron HCl (Zofran) 4 mg IV Q8H PRN PRN Reason: Nausea And Vomiting Oxybutynin Chloride (Ditropan) 5 mg PO BID [facility] Last Admin: 09/21/18 11:20 Dose: 5 mg Documented by: Pregabalin (Lyrica) 75 mg PO BID [facility] Last Admin: 09/21/18 11:21 Dose: 75 mg Documented by: Sodium Chloride (Sodium Chloride Flush Syringe 10 Ml) 10 ml IV BID [facility] Last Admin: 09/20/18 22:24 Dose: 10 ml Documented by: Sodium Chloride (Sodium Chloride Flush Syringe 10 Ml) 10 ml IV PRN PRN PRN Reason: LINE FLUSH Valsartan (Diovan) 320 mg PO QDAY [facility] Last Admin: 09/21/18 11:16 Dose: 320 mg Documented by: Review of Systems All systems: negative Constitutional: fatigue Ears, nose, mouth and throat: other (Fullness in right ear) Neurological: other (lightheadedness) Physical Examination - Vital Signs Vital Signs: Vital Signs Temp 100.4 F H 09/17/18 19:15 - Constitutional General appearance: comfortable - EENT EENT: Present: ATNC, PERRL, mucous membranes moist - Respiratory Respiratory: Present: lungs clear, normal breath sounds - Cardiovascular Cardiovascular: Present: regular rate, normal S1, normal S2 Extremities: Present: no peripheral edema bilatateraly, no clubbing, cyanosis - Gastrointestinal Gastrointestinal: Present: normoactive bowel sounds, soft, non-tender - Integumentary Integumentary: Present: normal - Neurologic Cranial nerve examination: PERRL, EOMI, VFF, V1/V2/V3 grossly intact, face symmetric, intact shoulder shrug Speech examination: intact Sensorimotor examination: intact Detailed motor examination: full strength in all faith Motor examination - right side: 5/5: biceps, triceps, wrist flexion, wrist extension, assistant professor of mathematics, hip flexors, knee extensors, dorsiflexion, toe extension (EHL), plantarflexion Motor examination - left side: 5: biceps, triceps, wrist flexion, wrist extension, assistant professor of mathematics, hip flexors, knee extensors, dorsiflexion, toe extension (EHL), plantarflexion Detailed sensory examination: intact, light touch Reflex and gait examination: normal gait Reflexes: 2+: ankle, bicep, knee, tricep Cerebellar examination: other (intact b/l HTS and FTN) - Musculoskeletal Musculoskeletal: Present: no fluid collection, no pain, normal range of motion - Psychiatric Psychiatric: Present: mood/affect appropriate Results - Laboratory Findings CBC and BMP: 09/20/18 06:58 09/20/18 06:58 Abnormal Lab Findings: Abnormal Labs 09/17/18 09/17/18 09/17/18 20:34 20:34 21:20 WBC 11.3 H RBC Hgb Hct RDW 15.6 H Lymph % (Auto) 11.4 L Eos % (Auto) 4.4 H Eos # 0.5 H Seg Neutrophils % 79.2 H Seg Neutrophils # 8.9 H D-Dimer Sodium 132 L Potassium Chloride 94.9 L Glucose 241 H POC Glucose Hemoglobin A1c ALT < 5 L Albumin 3.2 L Vitamin B12 Urine WBC (Auto) 29.0 H U Epithel Cells (Auto) 34.0 H 09/17/18 09/18/18 09/18/18 23:18 00:00 09:32 WBC RBC Hgb Hct RDW Lymph % (Auto) Eos % (Auto) Eos # Seg Neutrophils % Seg Neutrophils # D-Dimer 328.23 H Sodium Potassium Chloride Glucose POC Glucose 231 H Hemoglobin A1c 8.6 H ALT Albumin Vitamin B12 Urine WBC (Auto) U Epithel Cells (Auto) 09/18/18 09/18/18 09/18/18 11:02 11:02 11:54 WBC RBC 5.23 H Hgb 15.3 H Hct 44.7 H RDW 15.7 H Lymph % (Auto) Eos % (Auto) Eos # Seg Neutrophils % Seg Neutrophils # D-Dimer Sodium Potassium Chloride 97.6 L Glucose 217 H POC Glucose 196 H Hemoglobin A1c ALT Albumin Vitamin B12 Urine WBC (Auto) U Epithel Cells (Auto) 09/18/18 09/18/18 09/19/18 16:26 20:50 04:47 WBC RBC Hgb Hct RDW 15.5 H Lymph % (Auto) Eos % (Auto) 5.7 H Eos # 0.6 H Seg Neutrophils % 73.8 H Seg Neutrophils # D-Dimer Sodium Potassium Chloride Glucose POC Glucose 151 H 191 H Hemoglobin A1c ALT Albumin Vitamin B12 Urine WBC (Auto) U Epithel Cells (Auto) 09/19/18 09/19/18 09/19/18 04:47 08:22 12:28 WBC RBC Hgb Hct RDW Lymph % (Auto) Eos % (Auto) Eos # Seg Neutrophils % Seg Neutrophils # D-Dimer Sodium 136 L Potassium 3.5 L D Chloride 96.9 L Glucose 171 H POC Glucose 171 H 167 H Hemoglobin A1c ALT Albumin Vitamin B12 Urine WBC (Auto) U Epithel Cells (Auto) 09/19/18 09/19/18 09/20/18 16:44 23:08 06:58 WBC RBC Hgb Hct RDW 16.1 H Lymph % (Auto) Eos % (Auto) Eos # Seg Neutrophils % Seg Neutrophils # D-Dimer Sodium Potassium Chloride Glucose POC Glucose 139 H 170 H Hemoglobin A1c ALT Albumin Vitamin B12 Urine WBC (Auto) U Epithel Cells (Auto) 09/20/18 09/20/18 09/20/18 06:58 08:04 11:52 WBC RBC Hgb Hct RDW Lymph % (Auto) Eos % (Auto) Eos # Seg Neutrophils % Seg Neutrophils # D-Dimer Sodium Potassium Chloride Glucose 135 H POC Glucose 133 H 166 H Hemoglobin A1c ALT Albumin Vitamin B12 Urine WBC (Auto) U Epithel Cells (Auto) 09/20/18 09/20/18 09/21/18 16:31 21:25 07:40 WBC RBC Hgb Hct RDW Lymph % (Auto) Eos % (Auto) Eos # Seg Neutrophils % Seg Neutrophils # D-Dimer Sodium Potassium Chloride Glucose POC Glucose 186 H 160 H 132 H Hemoglobin A1c ALT Albumin Vitamin B12 Urine WBC (Auto) U Epithel Cells (Auto) 09/21/18 09/21/18 10:40 11:40 WBC RBC Hgb Hct RDW Lymph % (Auto) Eos % (Auto) Eos # Seg Neutrophils % Seg Neutrophils # D-Dimer Sodium Potassium Chloride Glucose POC Glucose 182 H Hemoglobin A1c ALT Albumin Vitamin B12 1346 H Urine WBC (Auto) U Epithel Cells (Auto) Assessment and Plan Patient is a 58-year-old woman with a history of hypertension, diabetes, diabetic neuropathy, hyperlipidemia, Mnire's disease, who p/w 2 episodes of syncope. According the patient's clinical findings, the syncopal events are most likely due to orthostatic hypotension, as patient was found to have orthostatic hypotension when orthostatic vital signs were checked. MRI brain was reviewed, did not show any significant acute abnormalities. Current lightheadedness is likely due to orthostatic hypotension, as she states that her mild dizziness and lightheadedness only worsens upon standing up, and is not worsened with lateral or anterior/posterior head movements. Of note, patient currently also has a UTI, and a history of Mnire's disease, which may also be contributing to mild lightheadedness. Plan: 1. Dizziness: Likely due to orthostatic hypotension, as there is no significant positional correlation with this, other than worsening with standing up. Recommend continued treatment for underlying orthostatic hypotension per cardiol ogy and primary team. Discussed sitting up and standing up slowly with patient, in order to avoid further syncopal events, as well as avoiding dehydration. MRI brain did not show any evidence of any acute abnormality. 2. Mnire's disease: Patient has an underlying history of Meniere's disease, a nd had been followed by ENT as outpatient for this. Recommend for patient to follow up with ENT as outpatient. 3. Orthostatic hypotension: orthostatic vital signs positive. Continue to manage per primary team and cardiology. Discussed plan of care with patient and primary team. - Will sign off. Please call with any questions. Simon Borrego MD Neurology - Patient Problems (1) Orthostatic hypotension Current Visit: Yes Status: Acute (2) Menieres disease Current Visit: Yes Status: Acute (3) Syncope Current Visit: Yes Status: Acute
== END 2018-09-21 19:38 | disposition home health service (06) ==
LOC: ED 19:03 → INTOOBSV 09-18 03:38 → 4A 09-18 03:38
PROVIDERS: ADMIT Internal Medicine; ATTEND Internal Medicine
DX: R55 Syncope and collapse (principal); I10 Essential (primary) hypertension; G47.30 Sleep apnea, unspecified; E11.40 Type 2 diabetes mellitus with diabetic neuropathy, unspecified; E78.5 Hyperlipidemia, unspecified; N39.0 Urinary tract infection, site not specified; E87.6 Hypokalemia; I95.1 Orthostatic hypotension; Z79.899 Other long term (current) drug therapy
CPT/HCPCS: 36415; 70450; 70551; 71275; 78452; 80048; 80053; 81001; 82607; 82962; 83036; 84484; 85025; 85027; 85379; 87040; 87086; 93005; 93010; 93017; 93306; 93880; 96361; 96365; 96366; 96372; 97162; 97165; 97535; 99284; A9270; A9502; G0378; J0696; J1650; J2785; J7030; Q9967; 96360; J1815

== ENCOUNTER 2020-01-07 14:12 | Emergency (ER) | payer BC ==
[2020-01-07 14:21] VITALS: BP 143/81
--- NOTE | 2020-01-07 14:47 | Event Note ---
ED Screening Note Date of service: 01/07/20 Time: 14:46 ED Screening Note: The patient was evaluated in the emergency department for symptoms described in the history of present illness. He/she was evaluated in the context of the global COVID-19 pandemic, which necessitated consideration that the patient might be at risk for infection with the virus that causes COVID-19. Institutional protocols and algorithms that pertain to the evaluation of patients at risk for COVID-19 are in a state of rapid change based on information released by regulatory bodies including the CDC and federal and state organizations. These policies and algorithms were followed during the patient's care in the emergency department. Please note that these policies, procedures and recommendations changed on a rapid basis. 59-year old morbid obese -[place] female presents to the emergency room for left wrist and forearm pain status post fall. This initial assessment/diagnostic orders/clinical plan/treatment(s) is/are subject to change based on patients health status, clinical progression and re- assessment by fellow clinical providers in the ED. Further treatment and workup at subsequent clinical providers discretion. Patient/guardian urged not to elope from the ED as their condition may be serious if not clinically assessed and managed. Initial orders include:
--- NOTE | 2020-01-07 15:27 | XRay Report ---
XR wrist 2V LT, XR forearm LT INDICATION / CLINICAL INFORMATION: Trauma and pain to left wrist. COMPARISON: None available. FINDINGS: Complete mildly displaced transverse fracture of the distal left radius. No intra-articular extension . There is also a mildly displaced fracture of the base of ulnar styloid. No significant angulation. Normal alignment. Joint spaces are preserved. No destructive osseous lesion or suspicious periosteal reaction. Impression: 1. Distal left radial Colles' fracture with associated ulnar styloid fracture. Signer Name: Mode Mercado MD Signed: 01/07/2020 3:23 PM Workstation Name: [id number]
[2020-01-07] MEDS ORDERED: IBUPROFEN 800 MG TAB PO ONE (17:09)
--- NOTE | 2020-01-07 17:34 | Emergency Department Report ---
ED Upper Extremity Inj HPI - General Chief Complaint: Extremity Injury, Upper Stated Complaint: LT ARM PAIN Time Seen by Provider: 01/07/20 17:02 Source: patient Mode of arrival: Ambulatory Limitations: No Limitations - History of Present Illness Initial Comments: This is a 59-year-old female nontoxic, well nourished in appearance, no acute signs of distress presents to the ED with c/o of left wrist and left distal forearm pain 1 week. Patient stated that she had a ground level trip and fall and while falling tripped to break her fall and landed to the left wrist area. Patient denies any other trauma. Patient denies any numbness, tingling, fever, chills, nausea, vomiting, chest pain, shortness of breath, headache, stiff neck. Patient denies any joint swelling or joint redness. Patient stated has some decreased range of motion due to pain. Patient denies any allergies. MD Complaint: Injury to:: left, forearm, wrist -: week(s) (1) Other Extremity Injury: Wrist: Left, Forearm: Left Severity scale (0 -10): 8 Improves With: immobilization Worsens With: movement of extremity Context: fall Associated Symptoms: denies other symptoms. denies: weakness, numbness, neck pain, suspects foreign body, nausea/vomiting, heard/felt popping sensat - Related Data Home Medications Medication Instructions Recorded Confirmed Last Taken Insulin Glargine,Hum.rec.anlog 40 unit SQ QHS 11/30/12 09/18/18 Unknown [Lantus Solostar] Oxybutynin [Ditropan] 5 mg PO BID 11/30/12 09/18/18 Unknown Pregabalin 75 mg PO BID 11/30/12 09/18/18 Unknown metFORMIN [Glucophage] 1,000 mg PO BID 11/30/12 09/18/18 Unknown Aspirin [Aspirin BABY CHEW TAB] 81 mg PO QDAY 09/18/18 09/18/18 Unknown Cyanocobalamin [Vitamin B-12] 1,000 mcg PO DAILY 09/18/18 09/18/18 Unknown Duloxetine HCl [Cymbalta] 60 mg PO QDAY 09/18/18 09/18/18 Unknown Ferrous Sulfate [Feosol 325 MG tab] 325 mg PO QDAY 09/18/18 09/18/18 Unknown Rosuvastatin Calcium 40 mg PO QDAY 09/18/18 09/18/18 Unknown Previous Rx's Medication Instructions Recorded Last Taken Type Valsartan [Diovan] 320 mg PO QDAY #60 tablet 09/21/18 Unknown Rx amLODIPine 10 mg PO QDAY #30 tablet 09/21/18 Unknown Rx carvediloL [Coreg] 6.25 mg PO Q12HR #60 tablet 09/21/18 Unknown Rx Naproxen 500 mg PO Q12H PRN #12 tablet 01/07/20 Unknown Rx Allergies Allergy/AdvReac Type Severity Reaction Status Date / Time No Known Allergies Allergy Verified 12/01/12 08:54 ED Review of Systems ROS: Stated complaint: LT ARM PAIN Other details as noted in HPI Comment: All other systems reviewed and negative Constitutional: denies: chills, fever Eyes: denies: eye pain, eye discharge, vision change ENT: denies: ear pain, throat pain Respiratory: denies: cough, shortness of breath, wheezing Cardiovascular: denies: chest pain, palpitations Endocrine: no symptoms reported Gastrointestinal: denies: abdominal pain, nausea, diarrhea Genitourinary: denies: urgency, dysuria, discharge Musculoskeletal: denies: back pain, joint swelling, arthralgia Skin: denies: rash, lesions Neurological: denies: headache, weakness, paresthesias Psychiatric: denies: anxiety, depression Hematological/Lymphatic: denies: easy bleeding, easy bruising ED Past Medical Hx - Past Medical History Previous Medical History?: Yes Hx Hypertension: Yes Hx Heart Attack/AMI: No Hx Congestive Heart Failure: No Hx Diabetes: Yes Hx Deep Vein Thrombosis: No Hx Pulmonary Embolism: No Hx Liver Disease: No Hx Asthma: No Hx COPD: No Hx Tuberculosis: No Additional medical history: enlarged heart, high cholesterol, neuropathy - Surgical History Past Surgical History?: Yes Hx Coronary Stent: No Hx Pacemaker: No Hx Internal Defibrillator: No Additional Surgical History: Rectal - Social History Smoking Status: Never Smoker Substance Use Type: None - Medications Home Medications: Home Medications Medication Instructions Recorded Confirmed Last Taken Type Insulin Glargine,Hum.rec.anlog 40 unit SQ QHS 11/30/12 09/18/18 Unknown History [Lantus Solostar] Oxybutynin [Ditropan] 5 mg PO BID 11/30/12 09/18/18 Unknown History Pregabalin 75 mg PO BID 11/30/12 09/18/18 Unknown History metFORMIN [Glucophage] 1,000 mg PO BID 11/30/12 09/18/18 Unknown History Aspirin [Aspirin BABY CHEW TAB] 81 mg PO QDAY 09/18/18 09/18/18 Unknown History Cyanocobalamin [Vitamin B-12] 1,000 mcg PO DAILY 09/18/18 09/18/18 Unknown History Duloxetine HCl [Cymbalta] 60 mg PO QDAY 09/18/18 09/18/18 Unknown History Ferrous Sulfate [Feosol 325 MG tab] 325 mg PO QDAY 09/18/18 09/18/18 Unknown History Rosuvastatin Calcium 40 mg PO QDAY 09/18/18 09/18/18 Unknown History Valsartan [Diovan] 320 mg PO QDAY #60 tablet 09/21/18 Unknown Rx amLODIPine 10 mg PO QDAY #30 tablet 09/21/18 Unknown Rx carvediloL [Coreg] 6.25 mg PO Q12HR #60 tablet 09/21/18 Unknown Rx Naproxen 500 mg PO Q12H PRN #12 tablet 01/07/20 Unknown Rx ED Physical Exam - General Limitations: No Limitations General appearance: alert, in no apparent distress - Head Head exam: Present: atraumatic, normocephalic - Eye Eye exam: Present: normal appearance - Neck Neck exam: Present: normal inspection, full ROM. Absent: tenderness, meningismus, lymphadenopathy - Respiratory Respiratory exam: Absent: respiratory distress - Cardiovascular Cardiovascular Exam: Present: regular rate - Extremities Exam Extremities exam: Present: normal inspection, full ROM, tenderness, normal capillary refill. Absent: joint swelling - Expanded Upper Extremity Exam Left General: Present: normal inspection Shoulder Exam: Present: normal inspection, full ROM. Absent: tenderness, swelling, abrasion, laceration, ecchymosis, deformity, crepidus, dislocation, erythema, tenderness over AC joint Upper Arm exam: Present: normal inspection, full ROM. Absent: tenderness, swelling, abrasion, laceration, ecchymosis, deformity, crepidus, dislocation, erythema Elbow exam: Present: normal inspection, full ROM. Absent: tenderness, swelling, abrasion, laceration, ecchymosis, deformity, crepidus, dislocation, erythema, effusion, pain w/ pronation/supination, tenderness over radial head Forearm Wrist exam: Present: normal inspection, full ROM, tenderness. Absent: swelling, abrasion, laceration, ecchymosis, deformity, crepidus, dislocation, erythema, tenderness over anatomical snuff box, pain with axial thumb loading Hand Wrist exam: Present: normal inspection, full ROM. Absent: tenderness, swelling, abrasion, laceration, ecchymosis, deformity, crepidus, dislocation, erythema, amputation, nail avulsion, subungual hematoma Hand L/R Back: 1 - pain here Vascular: Present: normal capillary refill. Absent: vascular compromise (Neurovascular within normal limits) - Back Exam Back exam: Present: normal inspection, full ROM. Absent: tenderness, CVA tenderness (R), CVA tenderness (L), muscle spasm, paraspinal tenderness, vertebral tenderness, rash noted - Neurological Exam Neurological exam: Present: alert, oriented X3, normal gait - Psychiatric Psychiatric exam: Present: normal affect, normal mood - Skin Skin exam: Present: warm, dry, intact, normal color. Absent: rash ED Course Vital Signs 01/07/20 14:17 Temperature 98.2 F Pulse Rate 86 Respiratory 18 Rate Blood Pressure 143/81 O2 Sat by Pulse 97 Oximetry - Reevaluation(s) Reevaluation #1: 01/07/20 17:32 Patient is speaking in full sentences with no signs of distress noted. ED Medical Decision Making - Radiology Data Referring Physician: MAHENDRA CASTILLO Patient Name: PENNY GARCIA Date of : 1960 Sex: Female Report Date: 2020-01-07 Report Status: Finalized [address] [address] XRay Report Signed Patient: PENNY GARCIA MR#: [id number] 45 : 1960 Acct:[id number] Age/Sex: 59 / F ADM Date: 01/07/20 Loc: ED Attending Dr: Ordering Physician: SARTHAK MARINO Date of Service: 01/07/20 Procedure(s): XR wrist 2V LT Accession Number(s): [id number] cc: SARTHAK MARINO Fluoro Time In Minutes: XR wrist 2V LT, XR forearm LT INDICATION / CLINICAL INFORMATION: Trauma and pain to left wrist. COMPARISON: None available. FINDINGS: Complete mildly displaced transverse fracture of the distal left radius. No intra-articular extension. There is also a mildly displaced fracture of the base of ulnar styloid. No significant angulation. Normal alignment. Joint spaces are preserved. No destructive osseous lesion or suspicious periosteal reaction. Impression: 1. Distal left radial Colles' fracture with associated ulnar styloid fracture. Signer Name: Mode Mercado MD Signed: 01/07/2020 3:23 PM Workstation Name: [id number] Transcribed By: Dictated By: Mode Mercado MD Electronically Authenticated By: Mode Mercado MD Signed Date/Time: 01/07/20 1523 DD/ 152 TD/TT: Referring Physician: MAHENDRA CASTILLO Patient Name: PENNY GARCIA Date of : 1960 Sex: Female Report Date: 2020-01-07 Report Status: Finalized [address] [address] XRay Report Signed Patient: PENNY GARCIA MR#: [id number] 45 : 1960 Acct:[id number] Age/Sex: 59 / F ADM Date: 01/07/20 Loc: ED Attending Dr: Ordering Physician: SARTHAK MARINO Date of Service: 01/07/20 Procedure(s): XR forearm LT Accession Number(s): [id number] cc: SARTHAK MARINO Fluoro Time In Minutes: XR wrist 2V LT, XR forearm LT INDICATION / CLINICAL INFORMATION: Trauma and pain to left wrist. COMPARISON: None available. FINDINGS: Complete mildly displaced transverse fracture of the distal left radius. No intra-articular extension. There is also a mildly displaced fracture of the base of ulnar styloid. No significant angulation. Normal alignment. Joint spaces are preserved. No destructive osseous lesion or suspicious periosteal reaction. Impression: 1. Distal left radial Colles' fracture with associated ulnar styloid fracture. Signer Name: Mode Mercado MD Signed: 01/07/2020 3:23 PM Workstation Name: [id number] Transcribed By: YULIA Dictated By: Mode Mercado MD Electronically Authenticated By: Mode Mercado MD Signed Date/Time: 01/07/201522 DD/ 20 TD/TT: - Medical Decision Making This is a 59-year-old female that presents with left radius fracture. Patient is stable and was examined by me. I referred patient to an orthopedic doctor for further evaluation for possible MRI. X-ray has been obtained and dictated by the radiologist. Patient is notified of the x-ray report with noted by the patient. Patient received a sling sugar tong splint and sling. Post splint assessment: neurovasular intact; normal cap refill <2 second; normal sensation; denies decreaed sensation; normal ROM of digits. Patient was instructed to RICE therapy. Patient received Motrin for pain. Patient is discharged with Naproxen. At time of discharge, the patient does not seem toxic or ill in appearance. No acute signs of distress noted. Patient agrees to discharge treatment plan of care. No further questions noted by the patient. Critical care attestation.: If time is entered above; I have spent that time in minutes in the direct care of this critically ill patient, excluding procedure time. ED Disposition Clinical Impression: Left radial fracture Qualifiers: Encounter type: initial encounter Radius location: distal Fracture type: closed Fracture morphology: unspecified fracture morphology Qualified Code(s): S52.502A - Unspecified fracture of the lower end of left radius, initial encounter for closed fracture Disposition: DC-01 TO HOME OR SELFCARE Is pt being admited?: No Does the pt Need Aspirin: No Condition: Stable Instructions: Wrist Fracture in Adults (ED), Splint Care (ED), RICE Therapy (ED) Additional Instructions: Follow-up with a orthopedic doctor in 3-5 days or if symptoms worsen and continue return to emergency room as soon as possible. No physical activity that extremity until cleared by orthopedic doctor Prescriptions: Naproxen 500 mg PO Q12H PRN #12 tablet PRN Reason: Pain , Severe (7-10) Referrals: PRIMARY CARE, [Referring] - 3-5 Days HAYLIE GUERRERO MD [Staff Physician] - 3-5 Days Forms: Work/School Release Form(ED)
== END 2020-01-07 18:17 | disposition home or self-care (01) ==
LOC: ED 14:12
DX: S52.502A Unspecified fracture of the lower end of left radius, initial encounter for closed fracture (principal); I10 Essential (primary) hypertension; E11.9 Type 2 diabetes mellitus without complications; Z79.4 Long term (current) use of insulin; Z79.899 Other long term (current) drug therapy; W01.0XXA Fall on same level from slipping, tripping and stumbling without subsequent striking against object, initial encounter; Y93.89 Activity, other specified; Y92.89 Other specified places as the place of occurrence of the external cause; Y99.8 Other external cause status

== ENCOUNTER 2020-03-19 12:37 | Outpatient (CLI) | payer BC ==
--- NOTE | 2020-03-19 13:55 | XRay Report ---
LEFT WRIST 4 VIEWS INDICATION: LEFT WRIST PAIN. COMPARISON: 01/07/2020 IMPRESSION: There is diffuse soft tissue swelling. Previously described distal radial fracture is un changed in position and alignment. Minimal displacement has developed at the ulnar styloid fracture. There is evidence for callus formation although the fracture lines remain evident. The carpal bones a re unremarkable. Signer Name: Jameel Harris Jr, MD Signed: 03/19/2020 1:51 PM Workstation Name: [id number]
== END 2020-03-19 12:38 | disposition home or self-care (01) ==
LOC: XRAY 12:37
PROVIDERS: ATTEND Orthopaedic Surgery
DX: S52.502A Unspecified fracture of the lower end of left radius, initial encounter for closed fracture (principal); S52.612A Displaced fracture of left ulna styloid process, initial encounter for closed fracture; M79.89 Other specified soft tissue disorders; X58.XXXA Exposure to other specified factors, initial encounter; Y93.89 Activity, other specified; Y92.89 Other specified places as the place of occurrence of the external cause; Y99.8 Other external cause status

== ENCOUNTER 2020-04-19 14:27 | Outpatient (CLI) | payer BC ==
--- NOTE | 2020-04-19 16:58 | XRay Report ---
HISTORY:UNSPECIFIED FRACTURE OF LOWER END OF LEFT RADIUS COMPARISON: None. TECHNIQUE: AP lateral and obliques views were obtained FINDINGS: Bones: Again noted is impacted fracture distal radius with associated ulnar styloid fracture. No sign ificant changes compared to previous exam dated 03/19/2020 Joint spaces: Maintained. Soft tissues: No significant abnormality. Additional findings: None. IMPRESSION: 1. Distal radial and ulnar styloid fracture unchanged from previous exam Signer Name: Conrado Ballard MD Signed: 04/19/2020 4:54 PM Workstation Name: [id number]
== END 2020-04-19 14:28 | disposition home or self-care (01) ==
LOC: XRAY 14:27
PROVIDERS: ATTEND Orthopaedic Surgery
DX: S52.512D Displaced fracture of left radial styloid process, subsequent encounter for closed fracture with routine healing (principal); S52.612D Displaced fracture of left ulna styloid process, subsequent encounter for closed fracture with routine healing; X58.XXXD Exposure to other specified factors, subsequent encounter